=== PATIENT | female | born 1980 | race Caucasian/White ===

== ENCOUNTER 2019-07-17 17:26 | Emergency (ER) | payer SELFPAY ==
[~2019-07-17] VITALS: Ht 157.4 cm; Wt 67.1 kg
[~2019-07-17 17:26] MED LIST: ACHYD1T PO; DCS100C PO; DICY10CA26 PO; FLC100T1 PO; HYDR1CAP2 PO; IBP800T PO; LRT10T PO; METR500T PO; OMEP-10 PO; PHEN15CA67 PO; [UNRECOGNIZED DRUG - OTHER] PO
[2019-07-17 18:40] VITALS: BP_SYST 115; BP_SYST 125; BP_SYST 126; BP_DIAS 77; BP_DIAS 81; BP_DIAS 83
[2019-07-17] MEDS ORDERED: NS IV 1000 ML 1,000 ML IV SCH (18:45)
--- NOTE | 2019-07-17 18:47 | ED General ---
General Chief Complaint: Dizziness/Syncope Stated Complaint: WEAKNESS / DIZZY Nursing Triage Note: Pt ambulatory to ED. Pt reports syncopal episode on . Pt reports feeling nauseated and diaphoretic. Pt reports dizziness and extreme weakness since that episode. Pt denies any additional symptoms. Nursing Sepsis Screen: No Definite Risk Source of Information: Patient Exam Limitations: No Limitations History of Present Illness Date Seen by Provider: Jul 17, 2019 Time Seen by Provider: 18:45 Initial Comments To ER with reports of a syncopal episode on . This began while she was loading her plate with food at a Thanksgiving dinner, she then became xiomara phoretic, felt her vision "going black", then fell landing on her buttocks. She's felt general malaise and fatigue since then, states her head feels heavy no fever no chills no nausea no vomiting no chest pain no palpitations but she does have some shortness of breath stating that it's just difficult for her to exert herself Timing/Duration: 1-2 Days Severity: Moderate Associated Systoms: Denies Symptoms Allergies and Home Medications Allergies Coded Allergies: NKANo Known Allergies (Verified Allergy, Unknown, 05/04/06) Home Medications Dicyclomine Hcl 10 Mg Capsule, 1 EACH PO QID PRN, (Reported) Docusate Sodium 100 Mg Capsule, 100 MG PO BID, (Reported) Fluconazole 100 Mg Tablet, 1 EACH PO DAILY, (Reported) Hydrocodone Bit/Acetaminophen 1 Tab Tablet, 1-2 TAB PO Q3H, (Reported) Ibuprofen 800 Mg Tab, 800 MG PO Q6HR PRN, (Reported) Loratadine 10 Mg Tab, 10 MG PO DAILY, (Reported) Metronidazole 500 Mg Tab, 1 EACH PO BID, (Reported) Omeprazole 20 Mg Capsule.dr, 20 MG PO DAILY, (Reported) Phentermine Hcl 15 Mg Capsule, 15 MG PO DAILY, (Reported) [Spriatec] , 1 PO DAILY, (Reported) Patient Home Medication List Home Medication List Reviewed: Yes Review of Systems Review of Systems Constitutional: see HPI; No chills, No fever EENTM: see HPI Respiratory: see HPI, dyspnea on exertion; No short of breath Cardiovascular: No chest pain, No palpitations; syncope Genitourinary: no symptoms reported Musculoskeletal: no symptoms reported Skin: no symptoms reported Psychiatric/Neurological: See HPI; Denies Headache Hematologic/Lymphatic: No Symptoms Reported Immunological/Allergic: no symptoms reported Past Itysycp-Wfgiug-Moxjra Hx Patient Social History Alcohol Use: Occasionally Uses Recreational Drug Use: No Smoking Status: Current Everyday Smoker Type Used: Cigarettes 2nd Hand Smoke Exposure: Yes Recent Foreign Travel: No Contact w/Someone Who Travel: No Recent Infectious Disease Expo: No Recent Hopitalizations: Yes Physical Abuse: No Sexual Abuse: No Immunizations Up To Date Date of Pneumonia Vaccine: May 18, 2011 Past Medical History Surgeries: Yes (surgery on her thumb, 2 back sx ) Appendectomy, Section, Gallbladder, Hysterectomy, Orthopedic Respiratory: Yes Asthma Cardiac: Yes Hypertension Neurological: Yes Headaches /Migraines Reproductive Disorders: Yes (DUB, FIBROID) Female Reproductive Disorders: Endometriosis 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 oz. kg; 27.00 BMI Method:Stated General Appearance: No Apparent Distress, WD/WN Eyes: Bilateral Eye Normal Inspection, Bilateral Eye PERRL, Bilateral Eye EOMI HEENT: PERRL/EOMI, TMs Normal, Normal ENT Inspection Neck: Full Range of Motion, Normal Inspection Respiratory: Normal Breath Sounds, No Accessory Muscle Use, No Respiratory Distress Cardiovascular: Regular Rate, Rhythm, Normal Peripheral Pulses Gastrointestinal: Normal Bowel Sounds, Non Tender, Soft Extremity: Normal Capillary Refill, Normal Inspection Neurologic/Psychiatric: Alert, Oriented x3 Skin: Normal Color, Warm/Dry Progress/Results/Core Measures Suspected Sepsis Recent Fever Within 48 Hours: No Infection Criteria Present: None New/Unexplained Altered Menta: No Sepsis Screen: No Definite Risk SIRS Temperature: Pulse: 115 Respiratory Rate: 14 Laboratory Tests 07/17/19 18:45: White Blood Count 9.4 Blood Pressure 125 /81 Mean: 96 Laboratory Tests 07/17/19 18:45: Creatinine 0.87, Platelet Count 177, Total Bilirubin 0.2 Results/Orders Lab Results Laboratory Tests Test 07/17/19 18:45 07/17/19 19:28 Range/Units White Blood Count 9.4 4.3-11.0 10^3/uL Red Blood Count 4.49 4.35-5.85 10^6/uL Hemoglobin 13.9 11.5-16.0 G/DL Hematocrit 41 35-52 % Mean Corpuscular Volume 91 80-99 FL Mean Corpuscular Hemoglobin 31 25-34 PG Mean Corpuscular Hemoglobin Concent 34 32-36 G/DL Red Cell Distribution Width 13.5 10.0-14.5 % Platelet Count 177 130-400 10^3/uL Mean Platelet Volume 11.4 H 7.4-10.4 FL Neutrophils (%) (Auto) 57 42-75 % Lymphocytes (%) (Auto) 32 12-44 % Monocytes (%) (Auto) 7 0-12 % Eosinophils (%) (Auto) 4 0-10 % Basophils (%) (Auto) 0 0-10 % Neutrophils # (Auto) 5.3 1.8-7.8 X 10^3 Lymphocytes # (Auto) 3.0 1.0-4.0 X 10^3 Monocytes # (Auto) 0.6 0.0-1.0 X 10^3 Eosinophils # (Auto) 0.4 H 0.0-0.3 10^3/uL Basophils # (Auto) 0.0 0.0-0.1 10^3/uL D-Dimer 0.37 0.00-0.49 UG/ML Sodium Level 138 135-145 MMOL/L Potassium Level 3.9 3.6-5.0 MMOL/L Chloride Level 104 98-107 MMOL/L Carbon Dioxide Level 26 21-32 MMOL/L Anion Gap 8 5-14 MMOL/L Blood Urea Nitrogen 12 7-18 MG/DL Creatinine 0.87 0.60-1.30 MG/DL Estimat Glomerular Filtration Rate > 60 BUN/Creatinine Ratio 14 Glucose Level 95 70-105 MG/DL Calcium Level 9.2 8.5-10.1 MG/DL Corrected Calcium 9.1 8.5-10.1 MG/DL Total Bilirubin 0.2 0.1-1.0 MG/DL Aspartate Amino Transf (AST/SGOT) 24 5-34 U/L Alanine Aminotransferase (ALT/SGPT) 33 0-55 U/L Alkaline Phosphatase 79 40-136 U/L Total Protein 7.4 6.4-8.2 GM/DL Albumin 4.1 3.2-4.5 GM/DL Thyroid Stimulating Hormone (TSH) 1.30 0.35-4.94 UIU/ML Free Thyroxine 1.01 0.70-1.48 NG/DL Serum Test, Qualitative NEGATIVE NEGATIVE Urine Color YELLOW Urine Clarity CLEAR Urine pH 6.0 5-9 Urine Specific Xenia 1.015 L 1.016-1.022 Urine Protein NEGATIVE NEGATIVE Urine Glucose (UA) NEGATIVE NEGATIVE Urine Ketones NEGATIVE NEGATIVE Urine Nitrite NEGATIVE NEGATIVE Urine Bilirubin NEGATIVE NEGATIVE Urine Urobilinogen 0.2 < = 1.0 MG/DL Urine Leukocyte Esterase NEGATIVE NEGATIVE Urine RBC (Auto) NEGATIVE NEGATIVE Urine RBC NONE /HPF Urine WBC NONE /HPF Urine Squamous Epithelial Cells 2-5 /HPF Urine Crystals NONE /LPF Urine Bacteria NEGATIVE /HPF Urine Casts NONE /LPF Urine Mucus NEGATIVE /LPF Urine Culture Indicated NO My Orders Orders - MOISES CARMICHAEL APRN Hcg,Qualitative Serum (07/17/19 18:40) Cbc With Automated Diff (07/17/19 18:40) Comprehensive Metabolic Panel (07/17/19 18:40) Ua Culture If Indicated (07/17/19 18:40) Ed Iv/Invasive Line Start (07/17/19 18:40) Ns Iv 1000 Ml (Sodium Chloride 0.9%) (07/17/19 18:45) Thyroid Stimulating Hormone (07/17/19 18:44) Free T4 (Free Thyroxine) (07/17/19 18:44) Fibrin Degradation Products (07/17/19 18:44) Ct Head Wo (07/17/19 18:44) Ekg Tracing (07/17/19 20:02) BNP (07/17/19 20:03) Vital Signs/I&O 07/17/19 07/17/19 17:55 18:40 Temp 36.6 Pulse 93 97 90 115 Resp 14 B/P (MAP) 116/84 (95) 115/77 (90) 126/83 (97) 125/81 (96) Pulse Ox 100 O2 Delivery Room Air Capillary Refill : Less Than 3 Seconds Blood Pressure Mean: 96 POS Diagnostic Imaging Diagonstic Imaging: Xray Comments NAME: ALAYNA PALENCIA REC#: [id number] PT STATUS: REG ER : 1980 PHYSICIAN: MOISES CARMICHAEL APRN ADMIT DATE: 07/17/19/ER Signed POSDate of Exam:07/17/19 CT HEAD WO PROCEDURE: CT head without contrast. TECHNIQUE: Multiple contiguous axial images were obtained through the brain without the use of intravenous contrast. Auto Exposure Controls were utilized during the CT exam to meet ALARA standards for radiation dose reduction. INDICATION: Syncope. Ventricles are normal in size, shape and position. There are no masses or hemorrhages. There are no extra-axial fluid collections. IMPRESSION: Negative CT head Dictated by: Dictated on workstation # [id number] Dict: 07/17/191940 Trans: 07/17/191955 [facility] [id number] Interpreted by: ANDREA NIEVES MD Electronically signed by: ANDREA NIEVES MD 07/17/191955 Departure Impression Primary Impression: Near syncope Additional Impression: General malaise Disposition: 01 HOME, SELF-CARE Condition: Stable Departure-Patient Inst. Decision time for Depature: 19:57 Referrals: [address] HOLLY A MD ENOCH,PRAVIN GREGORIO MD, MD, RICHARD A DO HAMMAD, ALI MD [facility] Rock FOSTER MD, BASHAR J MD NO,LOCAL PHYSICIAN (PCP) Primary Care Physician LENIN RG CHAD C MD Patient Instructions: Syncope (Fainting) (DC) Add. Discharge Instructions: 1. Return to ER for any concerns. Follow-up with your doctor next week. If You do not have a doctor call one of the physicians listed. All discharge instructions reviewed with patient and/or family. Voiced understanding. MOISES CARMICHAEL APRN Jul 17, 2019 18:47 POS
[2019-07-17 19:00] LABS: BASOPHILS % (AUTO) 0 % (0-10); EOSINOPHILS # (AUTO) 0.4 10^3/uL (0.0-0.3); EOSINOPHILS % (AUTO) 4 % (0-10); HEMATOCRIT 41 % (35-52); HEMOGLOBIN 13.9 G/DL (11.5-16.0); LYMPHOCYTES % (AUTO) 32 % (12-44); MEAN CORPUSCULAR HEMOGLOBIN 31 PG (25-34); MEAN CORPUSCULAR HGB CONC 34 G/DL (32-36); MEAN CORPUSCULAR VOLUME 91 FL (80-99); MEAN PLATELET VOLUME 11.4 FL (7.4-10.4); MONOCYTES # (AUTO) 0.6 X 10^3 (0.0-1.0); MONOCYTES % (AUTO) 7 % (0-12); NEUTROPHILS # (AUTO) 5.3 X 10^3 (1.8-7.8); NEUTROPHILS % (AUTO) 57 % (42-75); PLATELET COUNT 177 10^3/uL (130-400); RED CELL DISTRIBUTION WIDTH 13.5 % (10.0-14.5); WHITE BLOOD COUNT 9.4 10^3/uL (4.3-11.0)
[2019-07-17 19:23] LABS: ALANINE AMINOTRANSFERASE 33 U/L (0-55); ALBUMIN 4.1 GM/DL (3.2-4.5); ALKALINE PHOSPHATASE 79 U/L (40-136); BILIRUBIN,TOTAL 0.2 MG/DL (0.1-1.0); BUN/CREATININE RATIO 14; CALCIUM 9.2 MG/DL (8.5-10.1); CARBON DIOXIDE 26 MMOL/L (21-32); CHLORIDE 104 MMOL/L (98-107); CREATININE SERUM 0.87 MG/DL (0.60-1.30); GFR ESTIMATED > 60; GLUCOSE 95 MG/DL (70-105); POTASSIUM 3.9 MMOL/L (3.6-5.0); SODIUM 138 MMOL/L (135-145); TOTAL PROTEIN 7.4 GM/DL (6.4-8.2)
[2019-07-17 19:40] LABS: BILIRUBIN,URINE NEGATIVE (NEGATIVE); CLARITY,URINE CLEAR; COLOR,URINE YELLOW; GLUCOSE, URINE (UA) NEGATIVE (NEGATIVE); KETONES,URINE NEGATIVE (NEGATIVE); LEUKOCYTE ESTERASE ,URINE NEGATIVE (NEGATIVE); NITRITE,URINE NEGATIVE (NEGATIVE); PROTEIN,URINE NEGATIVE (NEGATIVE)
[2019-07-17 19:43] LABS: FREE T4 (FREE THYROXINE) 1.01 NG/DL (0.70-1.48)
--- NOTE | 2019-07-17 19:44 | Diagnostic Imaging Report ---
PROCEDURE: CT head without contrast. TECHNIQUE: Multiple contiguous axial images were obtained through the brain without the use of intravenous contrast. Auto Exposure Controls were utilized during the CT exam to meet ALARA standards for radiation dose reduction. INDICATION: Syncope. Ventricles are normal in size, shape and position. There are no masses or hemorrhages. There are no extra-axial fluid collections. IMPRESSION: Negative CT head Dictated by: Dictated on workstation # [id number]
[2019-07-17 19:46] LABS: BACTERIA,URINE NEGATIVE /HPF
[2019-07-17 20:09] VITALS: BP 125/81
--- OUTSIDE RECORDS SUMMARY | 2019-08-12 00:58 | XMS REPORT ---
Author Author Sandra OLVERA Organization [facility] Address [address] [place] [address] Care Team Providers Care [employer] [place] Marshal Name Role Phone WEST OLVERA Unavailable PROBLEMS Type Condition ICD9-CM Code QVB04-WH Code Onset Dates Condition S tatus SNOMED Code Problem Fatigue R53.83 Active 37796240 Problem Environmental allergies Z91.09 Active 025805487 Problem Mild intermittent asthma without complication J45. 20 Active 090810508 Problem ADHD (attention deficit hyperactivity disorder), combi aura type F90.2 Active 57587827 Problem Primary hypertension I10 Active 63962180 Problem Obesity (BMI 30.0-34.9) E66.9 Active 303024635255077 Problem Other headache syndrome G44.89 Active 646361022 Problem Fibromyalgia M79.7 Active 6112982 05 Problem Dysthymia F34.1 Active 73713437 Problem Arthralgia, unspecified joint M25.50 Active 25864369 Problem Family history of rheumatoid arthritis Z82.61 Active 388379712 Problem Hypothyroidism, unspecified E03.9 Ac tive 60494680 Problem Gastro-esophageal reflux disease without esophagitis K21.9 Active 527552857 Problem Weight gain R63.5 Active 8382581 Problem Unspecified asthma, uncomplicated J45.909 Active 481743926 Problem Migraine NOS/not intrcbl G43.009 Activ e 04763345 Problem Hormone replacement therapy Z79.890 Ac tive 761606831 ALLERGIES No Information ENCOUNTERS Encounter Location Date Diagnosis [facility] [address] [facility] [id number] [address] [place] [phone] Jul, ADHD (attention deficit hype ractivity disorder), combined type F90.2 [facility] [address] [facility] [id number] [address] [place] [phone] Jul, [facility] [address] [facility] [id number] [address] [place] [phone] Jun, Migraine 346.90 [facility] [address] [facility] [id number] [address] [place] [phone] Jun, Gastro-esophageal reflux dis ease without esophagitis K21.9 [facility] [address] [facility] [id number] [address] [place] [phone] Jun, [facility] [address] [facility] [id number] [address] [place] [phone] Jun, [facility] [address] [facility] [id number] [address] [place] [phone] Jun, [facility] [address] [place] [id number] [place] [phone] Jun, [facility] [address] [place] [id number] [place] [phone] May, Hypothyroidism, unspecified E03.9 ; Primary hypertension I10 and Arthralgia of multiple joints M25.50 [facility] [address] [place] [id number] [place] [phone] May, [facility] [address] [place] [id number] [place] [phone] May, Mild intermittent asthma wit hout complication J45.20 ; Hormone replacement therapy Z79.890 ; Hypothyroidism, unspecified E03.9 ; Fibromyalgia M79.7 ; Gastro-esophageal reflux disease without esophagitis K21.9 ; Primary hypertension I10 ; Arthralgia of multiple joints M25.50 and Encounter for immunization Z23 [facility] [address] [facility] [id number] [address] [place] [phone] May, [facility] [address] [place] [id number] [place] [phone] May, [facility] [address] [place] [id number] [place] [phone] May, Sore throat J02.9 [facility] [address] [phone] 24 Apr, 2018 Encounter for immunization Z 23 [place] [address] [address] 19 Apr, 2018 Dysuria R30.0 and Hypothyroi dism, unspecified E03.9 [place] [address] [address] Jul, [place] [address] [address] Jul, Hypothyroidism, unspecified E03.9 [place] [address] [address] Oct, [place] [address] [address] Oct, [place] [address] [address] Sep, Arthralgia, unspecified join t M25.50 [place] [address] [address] Sep, Arthralgia, unspecified join t M25.50 [place] [address] [address] Sep, Arthralgia, unspecified join t M25.50 [place] [address] [address] Sep, [place] [address] [address] Aug, Obesity (BMI 30.0-34.9) E66. 9 ; Dysthymia F34.1 and Arthralgia, unspecified joint M25.50 [place] [address] [address] Aug, Obesity (BMI 30.0-34.9) E66. 9 [place] [address] [address] Aug, [place] [address] [address] Jul, [facility] [address] [address] Jul, Obesity (BMI 30.0-34.9) E66. 9 [place] [address] [address] Jul, Obesity (BMI 30.0-34.9) E66. 9 and Family history of diabetes mellitus Z83.3 [place] [address] [address] Jul, Obesity (BMI 30.0-34.9) E66. 9 ; Family history of diabetes mellitus Z83.3 and Other headache syndrome G44.89 [place] [address] [address] Jun, Hypothyroidism, unspecified E03.9 [place] [address] [address] Jun, [facility] [address] [address] May, Hypothyroidism, unspecified E03.9 [facility] [address] [address] Apr, Vaginal yeast infection B37. 3 [facility] [address] [address] 02 Apr, 2016 Acute non-recurrent maxillar y sinusitis J01.00 [place] [address] [address] 13 Jan, 2016 Migraine NOS/not intrcbl G43 .009 and Hypothyroidism, unspecified E03.9 [facility] [address] [address] December, Hypothyroidism, unspecified E03.9 [facility] [address] [address] December, Maxillary sinusitis, unspeci fied chronicity J32.0 ; Cough R05 ; Mild intermittent asthma without complication J45.20 and Environmental allergies Z91.09 [place] [address] [address] Nov, Hypothyroidism, unspecified E03.9 [facility] [address] [address] Nov, Fatigue R53.83 ; Migraine NO S/not intrcbl G43.009 ; Gastro- esophageal reflux disease without esophagitis K21.9 ; Hypothyroidism, unspecified E03.9 and Hormone replacement therapy Z79.890 [place] [address] [address] Jun, Headache, unspecified headac he type R51 and Encounter for immunization Z23 [place] [address] [address] May, URI (upper respiratory infec tion) J06.9 and Unspecified asthma, uncomplicated J45.909 [facility] [address] [address] May, [place] [address] [address] May, Migraine NOS/not intrcbl G43 .009 [place] [address] [address] Apr, [place] [address] [address] Mar, Hypothyroid 244.9 and Migrai ne 346.90 [place] [address] [address] Mar, [place] [address] [facility] [id number] [address] [place] [phone] Mar, Fatigue 780.79 [facility] [address] [facility] [id number] [address] [place] [phone] Feb, Hormone replacement therapy V07.4 [facility] [address] [facility] [id number] [address] [place] [phone] Feb, Vertigo 780.4 [facility] [address] [facility] [id number] [address] [place] [phone] Jan, Hormone replacement therapy V07.4 [place] [address] [facility] [id number] [address] [place] [phone] Jan, [place] [address] [place] [id number] [place] [phone] Jan, [place] [address] [place] [id number] [place] [phone] December, Fatigue 780.79 ; Weight gain 783.1 ; Hormone replacement therapy V07.4 and GERD (gastroesophageal reflux disease) 530.81 [place] [address] [place] [id number] [place] [phone] December, Fatigue 780.79 ; Weight gain 783.1 ; Hormone replacement therapy V07.4 and GERD (gastroesophageal reflux disease) 530.81 [place] [address] [place] [phone] December, IMMUNIZATIONS No Known Immunizations SOCIAL HISTORY Never Assessed REASON FOR VISIT Blood pressure check-cyrusMerary PLAN OF CARE VITAL SIGNS Height 62 in 2018-07-28 Weight 156.4 lbs 2018-07-28 BMI 28.60 kg/m2 2018-07-28 Blood pressure systolic 102 mmHg 2018-07-28 Blood pressure diastolic 72 mmHg 2018-07-28 MEDICATIONS No Known Medications RESULTS No Results PROCEDURES No Known procedures INSTRUCTIONS MEDICATIONS ADMINISTERED No Known Medications MEDICAL (GENERAL) HISTORY Type Description Date Medical History seasonal allergies Medical History asthma Medical History gastroesophageal reflux disease (GERD) Medical History migraine headaches Medical History Hypertension Medical History fibromyalgia Surgical History section x2 Surgical History gallbladder 2011 Surgical History appendectomy 2011 Surgical History Hysterectomy Had only one ov tomas and small fallopian tube. Had total hyst. Dr Hilton 2012 Hospitalization History Hospitalization History Hysterectomy/appendectomy Hospitalization History Dehydration
--- OUTSIDE RECORDS SUMMARY | 2019-08-12 00:58 | XMS REPORT ---
Author Author Sandra OLVERA Organization [facility] Address [address] [place] [address] Care Team Providers Care Compressor Repairer Name Role Phone WEST OLVERA Unavailable PROBLEMS Type Condition ICD9-CM Code FEQ44-RF Code Onset Dates Condition S tatus SNOMED Code Problem Hormone replacement therapy Z79.890 Ac tive 579139919 Problem Mild intermittent asthma without complication J45. 20 Active 527102843 Problem Fatigue R53.83 Active 56380112 Problem Fibromyalgia M79.7 Active 8262358 05 Problem Primary hypertension I10 Active 83528466 Problem Obesity (BMI 30.0-34.9) E66.9 Active 218812061226550 Problem Environmental allergies Z91.09 Active 524638660 Problem Dysthymia F34.1 Active 53722388 Problem Other headache syndrome G44.89 Active 497959285 Problem Weight gain R63.5 Active 2007696 Problem Hypothyroidism, unspecified E03.9 Ac tive 87305600 Problem Migraine NOS/not intrcbl G43.009 Activ e 03542526 Problem Arthralgia, unspecified joint M25.50 Active 08776441 Problem Gastro-esophageal reflux disease without esophagitis K21.9 Active 291719369 Problem Family history of rheumatoid arthritis Z82.61 Active 112313767 Problem Unspecified asthma, uncomplicated J45.909 Active 258909821 ALLERGIES No Information ENCOUNTERS Encounter Location Date Diagnosis [facility] [address] [facility] [id number] [address] [place] [address] Jun, Migraine 346.90 [facility] [address] [facility] [id number] [address] [place] [address] 23 Jun, 2018 Gastro-esophageal reflux dis ease without esophagitis K21.9 [facility] [address] [facility] [id number] [address] [place] [phone] Jun, [facility] [address] [place] [id number] [address] [place] [phone] Jun, [facility] [address] [address] Jun, [facility] [address] [place] [id number] [place] [address] Jun, [facility] [address] [address] May, Hypothyroidism, unspecified E03.9 ; Primary hypertension I10 and Arthralgia of multiple joints M25.50 [place] [address] [address] May, [place] [address] [address] May, Mild intermittent asthma wit hout complication J45.20 ; Hormone replacement therapy Z79.890 ; Hypothyroidism, unspecified E03.9 ; Fibromyalgia M79.7 ; Gastro-esophageal reflux disease without esophagitis K21.9 ; Primary hypertension I10 ; Arthralgia of multiple joints M25.50 and Encounter for immunization Z23 [place] [address] [address] May, [place] [address] [address] May, [place] [address] [address] May, Sore throat J02.9 [place] [address] [place] [id number] [address] [place] [address] Apr, Encounter for immunization Z 23 [place] [address] [address] Apr, Dysuria R30.0 and Hypothyroi dism, unspecified E03.9 [place] [address] [address] Jul, [facility] [address] [place] [id number] [address] [place] [address] Jul, Hypothyroidism, unspecified E03.9 [facility] [address] [facility] [id number] [place] [phone] Oct, [facility] [address] [address] Oct, [facility] [address] [address] Sep, Arthralgia, unspecified join t M25.50 [place] [address] [address] Sep, Arthralgia, unspecified join t M25.50 [place] [address] [address] Sep, Arthralgia, unspecified join t M25.50 [facility] [address] [address] Sep, [facility] [address] [address] Aug, Obesity (BMI 30.0-34.9) E66. 9 ; Dysthymia F34.1 and Arthralgia, unspecified joint M25.50 [facility] [address] [address] Aug, Obesity (BMI 30.0-34.9) E66. 9 [facility] [address] [address] Aug, [place] [address] [address] Jul, [facility] [address] [address] Jul, Obesity (BMI 30.0-34.9) E66. 9 [place] [address] [address] Jul, Obesity (BMI 30.0-34.9) E66. 9 and Family history of diabetes mellitus Z83.3 [place] [address] [address] Jul, Obesity (BMI 30.0-34.9) E66. 9 ; Family history of diabetes mellitus Z83.3 and Other headache syndrome G44.89 [place] [address] [address] Jun, Hypothyroidism, unspecified E03.9 [place] [address] [address] Jun, [place] [address] [address] May, Hypothyroidism, unspecified E03.9 [place] [address] [address] Apr, Vaginal yeast infection B37. 3 [facility] [address] [address] 02 Apr, 2016 Acute non-recurrent maxillar y sinusitis J01.[address] [address] Jan, Migraine NOS/not intrcbl G43 .009 and Hypothyroidism, unspecified E03.9 [place] [address] [address] December, Hypothyroidism, unspecified E03.9 [facility] [place] [address] [address] December, Maxillary sinusitis, unspeci fied chronicity J32.0 ; Cough R05 ; Mild intermittent asthma without complication J45.20 and Environmental allergies Z91.09 [place] [address] [address] Nov, Hypothyroidism, unspecified E03.9 [place] [address] [address] Nov, Fatigue R53.83 ; Migraine NO S/not intrcbl G43.009 ; Gastro- esophageal reflux disease without esophagitis K21.9 ; Hypothyroidism, unspecified E03.9 and Hormone replacement therapy Z79.890 [place] [address] [address] Jun, Headache, unspecified headac he type R51 and Encounter for immunization Z23 [place] [address] [address] May, URI (upper respiratory infec tion) J06.9 and Unspecified asthma, uncomplicated J45.909 [place] [address] [address] May, [place] [address] [address] May, Migraine NOS/not intrcbl G43 .009 [place] [address] [address] Apr, [place] [address] [address] Mar, Hypothyroid 244.9 and Migrai ne 346.90 [place] [address] [address] Mar, [place] [address] [address] Mar, Fatigue 780.79 [place] [address] [address] Feb, Hormone replacement therapy V07.4 [place] [address] [address] Feb, Vertigo 780.4 [facility] [address] [facility] [id number] [address] [place] [address] Jan, Hormone replacement therapy V07.4 [place] [address] [facility] [id number] [address] [place] [address] Jan, [place] [address] [facility] [id number] [address] [place] [address] Jan, [place] [address] [facility] [id number] [address] [place] [address] December, Fatigue 780.79 ; Weight gain 783.1 ; Hormone replacement therapy V07.4 and GERD (gastroesophageal reflux disease) 530.81 [place] [address] [facility] [id number] [address] [place] [address] December, Fatigue 780.79 ; Weight gain 783.1 ; Hormone replacement therapy V07.4 and GERD (gastroesophageal reflux disease) 530.81 [place] [address] [facility] [id number] [address] [place] [address] December, IMMUNIZATIONS No Known Immunizations SOCIAL HISTORY Never Assessed REASON FOR VISIT New Refill Request PLAN OF CARE VITAL SIGNS MEDICATIONS Medication Instructions Dosage Frequency Start Date End Date Duration S tatus Imitrex 100 MG Orally Once a day prn May repeat in 2 h ours 0.5 - 1 tablet as needed one time Mar, 10 days Active RESULTS No Results PROCEDURES No Known procedures INSTRUCTIONS MEDICATIONS ADMINISTERED No Known Medications MEDICAL (GENERAL) HISTORY Type Description Date Medical History seasonal allergies Medical History asthma Medical History gastroesophageal reflux disease (GERD) Medical History migraine headaches Medical History Hypertension Surgical History section x2 Surgical History gallbladder 2010 Surgical History appendectomy 2011 Surgical History Hysterectomy Had only one ov tomas and small fallopian tube. Had total hyst. Dr Hilton 2011 Hospitalization History Hospitalization History Hysterectomy/appendectomy Hospitalization History Dehydration
--- OUTSIDE RECORDS SUMMARY | 2019-08-12 00:58 | XMS REPORT ---
Author Author Sandra OLVERA Organization [facility] Address [address] [place] [address] Care Team Providers Care Space Physicist Name Role Phone WEST OLVERA Unavailable PROBLEMS Type Condition ICD9-CM Code [id number] Code Onset Dates Condition S tatus SNOMED Code Problem Fatigue R53.83 Active 30603459 Problem Environmental allergies Z91.09 Active 005743664 Problem Mild intermittent asthma without complication J45. 20 Active 588493880 Problem ADHD (attention deficit hyperactivity disorder), combi aura type F90.2 Active 34924299 Problem Primary hypertension I10 Active 39837147 Problem Obesity (BMI 30.0-34.9) E66.9 Active 395375345460532 Problem Other headache syndrome G44.89 Active 680065197 Problem Fibromyalgia M79.7 Active 3689088 05 Problem Dysthymia F34.1 Active 73340174 Problem Arthralgia, unspecified joint M25.50 Active 55754360 Problem Family history of rheumatoid arthritis Z82.61 Active 870859858 Problem Hypothyroidism, unspecified E03.9 Ac tive 93948600 Problem Gastro-esophageal reflux disease without esophagitis K21.9 Active 094526218 Problem Weight gain R63.5 Active 4140852 Problem Unspecified asthma, uncomplicated J45.909 Active 630555494 Problem Migraine NOS/not intrcbl G43.009 Activ e 50611167 Problem Hormone replacement therapy Z79.890 Ac tive 363756141 ALLERGIES No Known Allergies ENCOUNTERS Encounter Location Date Diagnosis [facility] [address] [facility] [id number] [address] [place] [address] Jul, ADHD (attention deficit hype ractivity disorder), combined type F90.2 [facility] [address] [facility] [id number] [address] [place] [address] Jul, [facility] [address] [facility] [id number] [address] [place] [address] Jun, Migraine 346.90 [facility] [address] [facility] [id number] [address] [place] [address] Jun, Gastro-esophageal reflux dis ease without esophagitis K21.9 [facility] [address] [facility] [id number] [address] [place] [address] Jun, [facility] [address] [facility] [id number] [address] [place] [address] Jun, [facility] [address] [facility] [id number] [address] [place] [address] Jun, [facility] [address] [place] [id number] [place] [address] Jun, [facility] [address] [place] [id number] [address] [place] [address] May, Hypothyroidism, unspecified E03.9 ; Primary hypertension I10 and Arthralgia of multiple joints M25.50 [facility] [address] [place] [id number] [address] [place] [address] May, [facility] [address] [place] [id number] [address] [place] [address] May, Mild intermittent asthma wit hout complication J45.20 ; Hormone replacement therapy Z79.890 ; Hypothyroidism, unspecified E03.9 ; Fibromyalgia M79.7 ; Gastro-esophageal reflux disease without esophagitis K21.9 ; Primary hypertension I10 ; Arthralgia of multiple joints M25.50 and Encounter for immunization Z23 [facility] [address] [facility] [id number] [address] [place] [address] May, [facility] [address] [place] [id number] [address] [place] [address] May, [facility] [address] [place] [id number] [address] [place] [address] May, Sore throat J02.9 [facility] [address] [address] 24 Apr, 2018 Encounter for immunization Z 23 [place] [address] [address] 19 Apr, 2018 Dysuria R30.0 and Hypothyroi dism, unspecified E03.9 [place] [address] [address] Jul, [place] [address] [address] Jul, Hypothyroidism, unspecified E03.9 [place] [address] [address] Oct, [place] [address] [address] Oct, [place] [address] [address] Sep, Arthralgia, unspecified join t M25.50 [place] [address] [address] Sep, Arthralgia, unspecified join t M25.50 [place] [address] [address] Sep, Arthralgia, unspecified join t M25.50 [place] [address] [address] Sep, [place] [address] [address] Aug, Obesity (BMI 30.0-34.9) E66. 9 ; Dysthymia F34.1 and Arthralgia, unspecified joint M25.50 [place] [address] [address] Aug, Obesity (BMI 30.0-34.9) E66. 9 [place] [address] [address] Aug, [place] [address] [address] Jul, [facility] [address] [address] Jul, Obesity (BMI 30.0-34.9) E66. 9 [place] [address] [address] Jul, Obesity (BMI 30.0-34.9) E66. 9 and Family history of diabetes mellitus Z83.3 [place] [address] [address] Jul, Obesity (BMI 30.0-34.9) E66. 9 ; Family history of diabetes mellitus Z83.3 and Other headache syndrome G44.89 [place] [address] [address] Jun, Hypothyroidism, unspecified E03.9 [place] [address] [address] Jun, [facility] [address] [address] May, Hypothyroidism, unspecified E03.9 [facility] [address] [address] Apr, Vaginal yeast infection B37. 3 [facility] [address] [address] 02 Apr, 2016 Acute non-recurrent maxillar y sinusitis J01.00 [place] [address] [address] 13 Jan, 2016 Migraine NOS/not intrcbl G43 .009 and Hypothyroidism, unspecified E03.9 [facility] [address] [address] December, Hypothyroidism, unspecified E03.9 [facility] [address] [address] December, Maxillary sinusitis, unspeci fied chronicity J32.0 ; Cough R05 ; Mild intermittent asthma without complication J45.20 and Environmental allergies Z91.09 [place] [address] [address] Nov, Hypothyroidism, unspecified E03.9 [facility] [address] [address] Nov, Fatigue R53.83 ; Migraine NO S/not intrcbl G43.009 ; Gastro- esophageal reflux disease without esophagitis K21.9 ; Hypothyroidism, unspecified E03.9 and Hormone replacement therapy Z79.890 [place] [address] [address] Jun, Headache, unspecified headac he type R51 and Encounter for immunization Z23 [place] [address] [address] May, URI (upper respiratory infec tion) J06.9 and Unspecified asthma, uncomplicated J45.909 [place] [address] [address] May, [place] [address] [address] May, Migraine NOS/not intrcbl G43 .009 [place] [address] [address] Apr, [place] [address] [address] Mar, Hypothyroid 244.9 and Migrai ne 346.90 [place] [address] [address] Mar, [place] [address] [id number] [address] [place] [address] Mar, Fatigue 780.79 [facility] [address] [facility] [id number] [address] [place] [address] Feb, Hormone replacement therapy V07.4 [facility] [address] [facility] [id number] [address] [place] [address] Feb, Vertigo 780.4 [facility] [address] [id number] [address] [place] [address] Jan, Hormone replacement therapy V07.4 [place] [address] [id number] [address] [place] [address] Jan, [place] [address] [facility] [id number] [address] [place] [address] Jan, [place] [address] [facility] [id number] [address] [place] [address] December, Fatigue 780.79 ; Weight gain 783.1 ; Hormone replacement therapy V07.4 and GERD (gastroesophageal reflux disease) 530.81 [place] [address] [facility] [id number] [address] [place] [address] December, Fatigue 780.79 ; Weight gain 783.1 ; Hormone replacement therapy V07.4 and GERD (gastroesophageal reflux disease) 530.81 [place] [address] [facility] [id number] [address] [place] [address] December, IMMUNIZATIONS No Known Immunizations SOCIAL HISTORY Never Assessed REASON FOR VISIT med change, pt would like to switch weight loss meds. Wan A PLAN OF CARE Activity Details Follow Up 3 Months Reason: VITAL SIGNS Height 62 in 2018-07-28 Weight 156.4 lbs 2018-07-28 Temperature 98 degrees Fahrenheit 2018-07-28 Heart Rate 83 bpm 2018-07-28 Respiratory Rate 18 2018-07-28 Oximetry 99 % 2018-07-28 BMI 28.60 kg/m2 2018-07-28 Blood pressure systolic 102 mmHg 2018-07-28 Blood pressure diastolic 72 mmHg 2018-07-28 MEDICATIONS Medication Instructions Dosage Frequency Start Date End Date Duration S tatus Lisinopril-Hydrochlorothiazide 10-12.5 MG Orally Once a day 1 tablet 24h 30 day(s) Active Zyrtec Allergy 10 MG Orally Once a day 1 capsule 24h 30 day(s) Active Levothyroxine Sodium 50 mcg Orally Once a day 1 tablet 24h 27 A 2015 30 day(s) Active Estradiol 2 MG Orally Once a day 1 tablet 24h May, 3 0 day(s) Active ProAir HFA 108 (90 base) mcg/act Inhalation every 4 hrs 2 puffs as needed 4h 02 Apr, 2016 30 days Active Cymbalta 30 MG Orally Once a day 1 capsule 24h 30 da y(s) Active Amphetamine-Dextroamphet ER 15 mg Orally Once a day 1 capsule in the morning 24h Jul, 28 days Active Omeprazole 40 mg Orally twice a day TAKE ONE CAPSULE BY MOUTH DAILY 12h 30 Active Imitrex 100 MG Orally Once a day [...]
--- OUTSIDE RECORDS SUMMARY | 2019-08-12 00:58 | XMS REPORT ---
Author Author Sandra OLVERA Organization [facility] Address [address] [place] [address] Care Team Providers Care Relay Mechanic Name Role Phone WEST OLVERA Unavailable PROBLEMS Type Condition ICD9-CM Code [id number] Code Onset Dates Condition S tatus SNOMED Code Problem Fatigue R53.83 Active 07860917 Problem Environmental allergies Z91.09 Active 008963713 Problem Mild intermittent asthma without complication J45. 20 Active 275283065 Problem ADHD (attention deficit hyperactivity disorder), combi aura type F90.2 Active 16768707 Problem Primary hypertension I10 Active 71912334 Problem Obesity (BMI 30.0-34.9) E66.9 Active 917125046461515 Problem Other headache syndrome G44.89 Active 926639629 Problem Fibromyalgia M79.7 Active 5978848 05 Problem Dysthymia F34.1 Active 77049375 Problem Arthralgia, unspecified joint M25.50 Active 84487677 Problem Family history of rheumatoid arthritis Z82.61 Active 632982863 Problem Hypothyroidism, unspecified E03.9 Ac tive 96060948 Problem Gastro-esophageal reflux disease without esophagitis K21.9 Active 235334319 Problem Weight gain R63.5 Active 9963808 Problem Unspecified asthma, uncomplicated J45.909 Active 970938668 Problem Migraine NOS/not intrcbl G43.009 Activ e 83960699 Problem Hormone replacement therapy Z79.890 Ac tive [id number] ALLERGIES No Information ENCOUNTERS Encounter Location Date Diagnosis [facility] [address] [facility] [id number] [address] [place] [id number] 19 Jul, 2018 ADHD (attention deficit hype ractivity disorder), combined type F90.2 [facility] [address] [facility] [id number] [address] [place] [address] Jul, Vaginal yeast infection B37. 3 [facility] [address] [place] [id number] [address] [place] [address] Jul, ADHD (attention deficit hype ractivity disorder), combined type F90.2 [facility] [address] [place] [id number] [address] [place] [address] Jul, [facility] [address] [place] [id number] [address] [place] [address] Jun, Migraine 346.90 [facility] [address] [place] [id number] [address] [place] [address] Jun, Gastro-esophageal reflux dis ease without esophagitis K21.9 [place] [address] [place] [id number] [place] [address] Jun, [place] [address] [place] [id number] [address] [place] [address] Jun, [place] [address] [place] [id number] [address] [place] [address] Jun, [place] [address] [place] [id number] [address] [place] [address] Jun, [place] [address] [place] [id number] [place] [address] May, Hypothyroidism, unspecified E03.9 ; Primary hypertension I10 and Arthralgia of multiple joints M25.50 [place] [address] [place] [id number] [address] [place] [address] May, [place] [address] [place] [id number] [address] [place] [address] May, Mild intermittent asthma wit hout complication J45.20 ; Hormone replacement therapy Z79.890 ; Hypothyroidism, unspecified E03.9 ; Fibromyalgia M79.7 ; Gastro-esophageal reflux disease without esophagitis K21.9 ; Primary hypertension I10 ; Arthralgia of multiple joints M25.50 and Encounter for immunization Z23 [place] [address] [place] [id number] [address] [place] [address] May, [facility] [address] [place] [id number] [address] [place] [address] May, [facility] [address] [address] May, Sore throat J02.9 [facility] [address] [address] Apr, Encounter for immunization Z 23 [facility] [address] [address] Apr, Dysuria R30.0 and Hypothyroi dism, unspecified E03.9 [place] [address] [address] Jul, [place] [address] [address] Jul, Hypothyroidism, unspecified E03.9 [facility] [address] [address] Oct, [facility] [address] [address] Oct, [facility] [address] [address] Sep, Arthralgia, unspecified join t M25.50 [facility] [address] [address] Sep, Arthralgia, unspecified join t M25.50 [facility] [address] [place] [id number] [address] [place] [address] Sep, Arthralgia, unspecified join t M25.50 [facility] [address] [place] [id number] [address] [place] [address] Sep, [facility] [address] [address] Aug, Obesity (BMI 30.0-34.9) E66. 9 ; Dysthymia F34.1 and Arthralgia, unspecified joint M25.50 [place] [address] [address] Aug, Obesity (BMI 30.0-34.9) E66. 9 [place] [address] [address] Aug, [facility] [address] [address] Jul, [place] [address] [address] Jul, Obesity (BMI 30.0-34.9) E66. 9 [place] [address] [address] Jul, Obesity (BMI 30.0-34.9) E66. 9 and Family history of diabetes mellitus Z83.3 [place] [address] [address] Jul, Obesity (BMI 30.0-34.9) E66. 9 ; Family history of diabetes mellitus Z83.3 and Other headache syndrome G44.89 [place] [address] [address] Jun, Hypothyroidism, unspecified E03.9 [place] [address] [address] Jun, [place] [address] [address] May, Hypothyroidism, unspecified E03.9 [place] [address] [address] Apr, Vaginal yeast infection B37. 3 [facility] [address] [address] Apr, Acute non-recurrent maxillar y sinusitis J01.00 [facility] [address] [address] Jan, Migraine NOS/not intrcbl G43 .009 and Hypothyroidism, unspecified E03.9 [facility] [address] [address] December, Hypothyroidism, unspecified E03.9 [facility] [address] [address] December, Maxillary sinusitis, unspeci fied chronicity J32.0 ; Cough R05 ; Mild intermittent asthma without complication J45.20 and Environmental allergies Z91.09 [place] [address] [address] Nov, Hypothyroidism, unspecified E03.9 [place] [address] [address] Nov, Fatigue R53.83 ; Migraine NO S/not intrcbl G43.009 ; Gastro- esophageal reflux disease without esophagitis K21.9 ; Hypothyroidism, unspecified E03.9 and Hormone replacement therapy Z79.890 [place] [address] [address] Jun, Headache, unspecified headac he type R51 and Encounter for immunization Z23 [place] [address] [address] May, URI (upper respiratory infec tion) J06.9 and Unspecified asthma, uncomplicated J45.909 [place] [address] [address] May, [place] [address] [address] May, Migraine NOS/not intrcbl G43 .009 [place] [address] [address] Apr, [place] [address] [facility] [id number] [address] [place] [address] Mar, Hypothyroid 244.9 and Migrai ne 346.90 [place] [address] [facility] [id number] [address] [place] [address] Mar, [place] [address] [facility] [id number] [address] [place] [address] Mar, Fatigue 780.79 [place] [address] [facility] [id number] [address] [place] [address] Feb, Hormone replacement therapy V07.4 [place] [address] [facility] [id number] [address] [place] [address] Feb, Vertigo 780.4 [place] [address] [facility] [id number] [address] [place] [address] Jan, Hormone replacement therapy V07.4 [place] [address] [facility] [id number] [address] [place] [address] Jan, [place] [address] [facility] [id number] [address] [place] [address] Jan, [place] [address] [facility] [id number] [address] [place] [address] December, Fatigue 780.79 ; Weight gain 783.1 ; Hormone replacement therapy V07.4 and GERD (gastroesophageal reflux disease) 530.81 [place] [address] [facility] [id number] [address] [place] [address] December, Fatigue 780.79 ; Weight gain 783.1 ; Hormone replacement therapy V07.4 and GERD (gastroesophageal reflux disease) 530.81 [place] [address] [facility] [id number] [address] [place] [address] December, IMMUNIZATIONS No Known Immunizations SOCIAL HISTORY Never Assessed REASON FOR VISIT PLAN OF CARE VITAL SIGNS MEDICATIONS Medication Instructions Dosage Frequency Start Date End Date Duration S ritaus Adderall XR 30 MG Orally Once a day 1 capsule in the morning 24h Jul, 28 days Active Adderall 20 mg Orally in evening if needed 1 tablet Jul, 28 days Active RESULTS No Results PROCEDURES No [...]
--- OUTSIDE RECORDS SUMMARY | 2019-08-12 00:58 | XMS REPORT ---
Author Author Sandra OLVERA Organization [facility] [place] Address [address] [place] [address] Care Team Providers Care Passenger Tire Builder Name Role Phone WEST OLVERA Unavailable PROBLEMS Type Condition ICD9-CM Code AXC14-LA Code Onset Dates Condition S tatus SNOMED Code Problem Fatigue R53.83 Active 88571055 Problem Environmental allergies Z91.09 Active 465254453 Problem Mild intermittent asthma without complication J45. 20 Active 351799250 Problem ADHD (attention deficit hyperactivity disorder), combi aura type F90.2 Active 25174707 Problem Primary hypertension I10 Active 44072184 Problem Obesity (BMI 30.0-34.9) E66.9 Active 645757816168332 Problem Other headache syndrome G44.89 Active 687624861 Problem Fibromyalgia M79.7 Active 0230435 05 Problem Dysthymia F34.1 Active 09180569 Problem Arthralgia, unspecified joint M25.50 Active 16374888 Problem Family history of rheumatoid arthritis Z82.61 Active 393018834 Problem Hypothyroidism, unspecified E03.9 Ac tive 58868069 Problem Gastro-esophageal reflux disease without esophagitis K21.9 Active 692589918 Problem Weight gain R63.5 Active 5098137 Problem Unspecified asthma, uncomplicated J45.909 Active 887843872 Problem Migraine NOS/not intrcbl G43.009 Activ e 28474921 Problem Hormone replacement therapy Z79.890 Ac tive 775146070 ALLERGIES No Information ENCOUNTERS Encounter Location Date Diagnosis [facility] [place] [address] [facility] [id number] [address] [place] [address] 14 Jul, 2018 Vaginal yeast infection B37. 3 [facility] [place] [address] [facility] [id number] [address] [place] [address] 11 Jul, 2018 ADHD (attention deficit hype ractivity disorder), combined type F90.2 [facility] [place] [address] [place] [id number] [address] [place] [address] Jul, [facility] [place] [address] [address] Jun, Migraine 346.90 [facility] [place] [address] [place] [id number] [address] [place] [address] Jun, Gastro-esophageal reflux dis ease without esophagitis K21.9 [facility] [place] [address] [place] [id number] [place] [address] Jun, [facility] [place] [address] [place] [id number] [place] [address] Jun, [facility] [place] [address] [place] [id number] [place] [address] Jun, [facility] [place] [address] [address] Jun, [facility] [place] [address] [address] May, Hypothyroidism, unspecified E03.9 ; Primary hypertension I10 and Arthralgia of multiple joints M25.50 [facility] [place] [address] [place] [id number] [address] [place] [address] May, [facility] [place] [address] [address] May, Mild intermittent asthma wit hout complication J45.20 ; Hormone replacement therapy Z79.890 ; Hypothyroidism, unspecified E03.9 ; Fibromyalgia M79.7 ; Gastro-esophageal reflux disease without esophagitis K21.9 ; Primary hypertension I10 ; Arthralgia of multiple joints M25.50 and Encounter for immunization Z23 [facility] [place] [address] [place] [id number] [address] [place] [address] May, [facility] [place] [address] [place] [id number] [address] [place] [address] May, [facility] [place] [address] [address] May, Sore throat J02.9 [place] [address] [address] 24 Apr, 2018 Encounter for immunization Z 23 [place] [address] [address] 19 Apr, 2018 Dysuria R30.0 and Hypothyroi dism, unspecified E03.9 [place] [address] [address] Jul, [place] [address] [address] Jul, Hypothyroidism, unspecified E03.9 [place] [address] [address] Oct, [place] [address] [address] Oct, [place] [address] [address] Sep, Arthralgia, unspecified join t M25.50 [place] [address] [address] Sep, Arthralgia, unspecified join t M25.50 [place] [address] [address] Sep, Arthralgia, unspecified join t M25.50 [place] [address] [address] Sep, [place] [address] [address] Aug, Obesity (BMI 30.0-34.9) E66. 9 ; Dysthymia F34.1 and Arthralgia, unspecified joint M25.50 [place] [address] [address] 11 Aug, 2016 Obesity (BMI 30.0-34.9) E66. 9 [facility] [place] [address] [address] Aug, [facility] [place] [address] [place] [id number] [place] [address] Jul, [facility] [place] [address] [address] Jul, Obesity (BMI 30.0-34.9) E66. 9 [facility] [place] [address] [address] Jul, Obesity (BMI 30.0-34.9) E66. 9 and Family history of diabetes mellitus Z83.3 [facility] [place] [address] [address] Jul, Obesity (BMI 30.0-34.9) E66. 9 ; Family history of diabetes mellitus Z83.3 and Other headache syndrome G44.89 [place] [address] [address] Jun, Hypothyroidism, unspecified E03.9 [facility] [place] [address] [address] 16 Jun, 2016 [facility] [place] [address] [address] May, Hypothyroidism, unspecified E03.9 [facility] [place] [address] [place] [id number] [address] [place] [address] 12 Apr, 2016 Vaginal yeast infection B37. 3 [facility] [address] [place] [id number] [address] [place] [address] 02 Apr, 2016 Acute non-recurrent maxillar y sinusitis J01.00 [facility] [place] [address] [address] 13 Jan, 2016 Migraine NOS/not intrcbl G43 .009 and Hypothyroidism, unspecified E03.9 [facility] [place] [address] [address] December, Hypothyroidism, unspecified E03.9 [facility] [address] [address] December, Maxillary sinusitis, unspeci fied chronicity J32.0 ; Cough R05 ; Mild intermittent asthma without complication J45.20 and Environmental allergies Z91.09 [facility] [place] [address] [address] Nov, Hypothyroidism, unspecified E03.9 [place] [address] [address] Nov, Fatigue R53.83 ; Migraine NO S/not intrcbl G43.009 ; Gastro- esophageal reflux disease without esophagitis K21.9 ; Hypothyroidism, unspecified E03.9 and Hormone replacement therapy Z79.890 [place] [address] [address] Jun, Headache, unspecified headac he type R51 and Encounter for immunization Z23 [place] [address] [address] May, URI (upper respiratory infec tion) J06.9 and Unspecified asthma, uncomplicated J45.909 [place] [address] [address] May, [place] [address] [address] May, Migraine NOS/not intrcbl G43 .009 [place] [address] [address] Apr, [place] [address] [address] Mar, Hypothyroid 244.9 and Migrai ne 346.90 [place] [address] [facility] [id number] [address] [place] [address] Mar, [place] [address] [facility] [id number] [place] [address] Mar, Fatigue 780.79 [place] [address] [facility] [id number] [address] [place] [address] Feb, Hormone replacement therapy V07.4 [place] [address] [facility] [id number] [address] [place] [address] Feb, Vertigo 780.4 [place] [address] [facility] [id number] [address] [place] [address] Jan, Hormone replacement therapy V07.4 [place] [address] [place] [id number] [place] [address] Jan, [place] [address] [place] [id number] [address] [place] [address] Jan, [place] [address] [place] [address] December, Fatigue 780.79 ; Weight gain 783.1 ; Hormone replacement therapy V07.4 and GERD (gastroesophageal reflux disease) 530.81 [place] [address] [place] [id number] [address] [place] [address] December, Fatigue 780.79 ; Weight gain 783.1 ; Hormone replacement therapy V07.4 and GERD (gastroesophageal reflux disease) 530.81 [place] [address] [place] [id number] [place] [phone] December, IMMUNIZATIONS No Known Immunizations SOCIAL HISTORY Never Assessed REASON FOR VISIT med request PLAN OF CARE VITAL SIGNS MEDICATIONS Medication Instructions Dosage Frequency Start Date End Date Duration S tatus Diflucan 150 MG Orally Once a day 1 tablet 24h Jul, 3 days Active RESULTS No Results PROCEDURES No [...]
--- OUTSIDE RECORDS SUMMARY | 2019-08-12 00:59 | XMS REPORT ---
Author Author Sandra OLVERA Organization [facility] Address [address] [place] [address] Care Team Providers Care Clinical Research Specialist Name Role Phone WEST OLVERA Unavailable PROBLEMS Type Condition ICD9-CM Code ILT42-BK Code Onset Dates Condition S tatus SNOMED Code Problem Hormone replacement therapy Z79.890 Ac tive 382598924 Problem Mild intermittent asthma without complication J45. 20 Active 828105465 Problem Fatigue R53.83 Active 20556185 Problem Fibromyalgia M79.7 Active 4918892 05 Problem Primary hypertension I10 Active 56737292 Problem Obesity (BMI 30.0-34.9) E66.9 Active 780160750315638 Problem Environmental allergies Z91.09 Active 467719460 Problem Dysthymia F34.1 Active 89810805 Problem Other headache syndrome G44.89 Active 168830204 Problem Weight gain R63.5 Active 9803643 Problem Hypothyroidism, unspecified E03.9 Ac tive 37533198 Problem Migraine NOS/not intrcbl G43.009 Activ e 34969561 Problem Arthralgia, unspecified joint M25.50 Active 64479902 Problem Gastro-esophageal reflux disease without esophagitis K21.9 Active 018822774 Problem Family history of rheumatoid arthritis Z82.61 Active 379050323 Problem Unspecified asthma, uncomplicated J45.909 Active 894817087 ALLERGIES No Information ENCOUNTERS Encounter Location Date Diagnosis [facility] [address] [facility] [id number] [address] [place] [address] Jun, [facility] [address] [facility] [id number] [address] [place] [address] Jun, [facility] [address] [facility] [id number] [address] [place] [address] Jun, [facility] [address] [facility] [id number] [address] [place] [address] May, Hypothyroidism, unspecified E03.9 ; Primary hypertension I10 and Arthralgia of multiple joints M25.50 [facility] [address] [place] [id number] [address] [place] [address] May, [place] [address] [place] [id number] [address] [place] [address] May, Mild intermittent asthma wit hout complication J45.20 ; Hormone replacement therapy Z79.890 ; Hypothyroidism, unspecified E03.9 ; Fibromyalgia M79.7 ; Gastro-esophageal reflux disease without esophagitis K21.9 ; Primary hypertension I10 ; Arthralgia of multiple joints M25.50 and Encounter for immunization Z23 [place] [address] [place] [id number] [address] [place] [address] May, [place] [address] [address] May, [place] [address] [address] May, Sore throat J02.9 [place] [address] [place] [id number] [place] [address] Apr, Encounter for immunization Z 23 [place] [address] [place] [id number] [address] [place] [address] Apr, Dysuria R30.0 and Hypothyroi dism, unspecified E03.9 [place] [address] [place] [id number] [address] [place] [address] Jul, [place] [address] [place] [id number] [address] [place] [address] Jul, Hypothyroidism, unspecified E03.9 [place] [address] [place] [id number] [address] [place] [address] Oct, [place] [address] [place] [id number] [address] [place] [address] Oct, [place] [id number] [place] [address] Sep, Arthralgia, unspecified join t M25.50 [facility] [address] [place] [id number] [address] [place] [address] Sep, Arthralgia, unspecified join t M25.50 [place] [address] [address] Sep, Arthralgia, unspecified join t M25.50 [place] [address] [place] [id number] [place] [address] Sep, [place] [address] [place] [id number] [place] [address] Aug, Obesity (BMI 30.0-34.9) E66. 9 ; Dysthymia F34.1 and Arthralgia, unspecified joint M25.50 [place] [address] [address] Aug, Obesity (BMI 30.0-34.9) E66. 9 [place] [address] [address] Aug, [place] [address] [address] Jul, [place] [address] [address] Jul, Obesity (BMI 30.0-34.9) E66. 9 [place] [address] [address] Jul, Obesity (BMI 30.0-34.9) E66. 9 and Family history of diabetes mellitus Z83.3 [place] [address] [address] Jul, Obesity (BMI 30.0-34.9) E66. 9 ; Family history of diabetes mellitus Z83.3 and Other headache syndrome G44.89 [place] [address] [address] 17 Jun, 2016 Hypothyroidism, unspecified E03.9 [place] [address] [address] 16 Jun, 2016 [place] [address] [address] May, Hypothyroidism, unspecified E03.9 [place] [address] [address] Apr, Vaginal yeast infection B37. 3 [facility] [place] [address] [address] 02 Apr, 2016 Acute non-recurrent maxillar y sinusitis J01.00 [place] [address] [address] Jan, Migraine NOS/not intrcbl G43 .009 and Hypothyroidism, unspecified E03.9 [place] [address] [address] December, Hypothyroidism, unspecified E03.9 [facility] [place] [address] [address] December, Maxillary sinusitis, unspeci fied chronicity J32.0 ; Cough R05 ; Mild intermittent asthma without complication J45.20 and Environmental allergies Z91.09 [place] [address] [address] [place] [id number] [address] [place] [address] Nov, Hypothyroidism, unspecified E03.9 [place] [address] [address] Nov, Fatigue R53.83 ; Migraine NO S/not intrcbl G43.009 ; Gastro- esophageal reflux disease without esophagitis K21.9 ; Hypothyroidism, unspecified E03.9 and Hormone replacement therapy Z79.890 [place] [address] [address] Jun, Headache, unspecified headac he type R51 and Encounter for immunization Z23 [place] [address] [address] May, URI (upper respiratory infec tion) J06.9 and Unspecified asthma, uncomplicated J45.909 [place] [address] [address] May, [place] [address] [address] May, Migraine NOS/not intrcbl G43 .009 [place] [address] [address] Apr, [place] [address] [address] Mar, Hypothyroid 244.9 and Migrai ne 346.90 [place] [address] [address] Mar, [place] [address] [address] Mar, Fatigue 780.79 [place] [address] [address] Feb, Hormone replacement therapy V07.4 [place] [address] [address] Feb, Vertigo 780.4 [place] [address] [address] Jan, Hormone replacement therapy V07.4 [place] [address] [address] Jan, [place] [address] [address] Jan, [place] [address] [facility] [id number] [address] [place] [address] December, Fatigue 780.79 ; Weight gain 783.1 ; Hormone replacement therapy V07.4 and GERD (gastroesophageal reflux disease) 530.81 [facility] [address] [facility] [id number] [address] [place] [address] December, Fatigue 780.79 ; Weight gain 783.1 ; Hormone replacement therapy V07.4 and GERD (gastroesophageal reflux disease) 530.81 [facility] [address] [facility] [id number] [address] [place] [address] December, IMMUNIZATIONS No Known Immunizations SOCIAL HISTORY Never Assessed REASON FOR VISIT Weight check / blood pressure check-Maria Guadalupe MORROW PLAN OF CARE VITAL SIGNS Height 62 in 2018-06-22 Weight 158.8 lbs 2018-06-22 BMI 29.04 kg/m2 2018-06-22 Blood pressure systolic 112 mmHg 2018-06-22 Blood pressure diastolic 70 mmHg 2018-06-22 MEDICATIONS Unknown Medications RESULTS No Results PROCEDURES No Known [...]
--- OUTSIDE RECORDS SUMMARY | 2019-08-12 00:59 | XMS REPORT ---
Author Author Sandra HANEY Organization [facility] Address [address] [place] [address] Care Team Providers Care Rehabilitation Team Lead Name Role Phone CAROLYN HANEY Unavailable PROBLEMS Type Condition ICD9-CM Code DEL92-DW Code Onset Dates Condition S tatus SNOMED Code Assessment Vaginal yeast infection B37.3 12 Apr, 2016 Ac tive 73425083 Problem Gastro-esophageal reflux disease without esophagitis K21.9 Active 145472958 Problem Unspecified asthma, uncomplicated J45.909 Active 704759430 Problem Mild intermittent asthma without complication J45. 20 Active 740593663 Problem Environmental allergies Z91.09 Active 411147247 Problem Hypothyroidism, unspecified E03.9 Ac tive 99101750 Problem Migraine NOS/not intrcbl G43.009 Activ e 53961152 Problem Fatigue R53.83 Active 17563761 Problem Hormone replacement therapy Z79.890 Ac tive 224229417 ALLERGIES Unknown Allergies SOCIAL HISTORY No smoking Hx information available PLAN OF CARE VITAL SIGNS MEDICATIONS Medication Instructions Dosage Frequency Start Date End Date Duration S tatus Diflucan 150 MG Orally one time. May repeat in 3 days i f symptoms persist. 1 tablet 4 days Active RESULTS No Results PROCEDURES No Known procedures IMMUNIZATIONS No Known Immunizations
--- OUTSIDE RECORDS SUMMARY | 2019-08-12 00:59 | XMS REPORT ---
Author Author Sandra HANEY Organization [employer] Address Unknown Phone Unavailable Care Team Providers Care Assistant Press Operator Offset Name Role Phone CAROLYN HANEY CP Unavailable Allergies No Known Allergies Problems Problem Type Condition Code Onset Dates Condition Statu s Problem Hormone replacement therapy Z79.890 Active Problem Hypothyroidism, unspecified E03.9 Active Problem Fatigue R53.83 Active Problem Unspecified asthma, uncomplicated J45.909 Active Assessment Hypothyroidism, unspecified E03.9 Active Problem Migraine NOS/not intrcbl G43.009 Act remy Problem Gastro-esophageal reflux disease without esophagitis K 21.9 Active Medications Medication Code System Code Instructions Start Date End Date Status Dosage Levothyroxine Sodium [facility] [address]-96 50 MCG Orally Once a da y December 13, 2015 1 tablet Results No Known Results Summary Purpose [employer] Submission
--- OUTSIDE RECORDS SUMMARY | 2019-08-12 00:59 | XMS REPORT ---
Author Author Sandra OLVERA Organization [facility] Address [address] [place] [address] Care Team Providers Care Manager Cargo Name Role Phone WEST OLVERA Unavailable PROBLEMS Type Condition ICD9-CM Code OSZ34-LD Code Onset Dates Condition S tatus SNOMED Code Problem Unspecified asthma, uncomplicated J45.909 Active 466647734 Problem Hormone replacement therapy Z79.890 Ac tive 712385377 Problem Hypothyroidism, unspecified E03.9 Ac tive 17525330 Problem Dysthymia F34.1 Active 21086803 Problem Other headache syndrome G44.89 Active 479888568 Problem Mild intermittent asthma without complication J45. 20 Active 486086006 Problem Fatigue R53.83 Active 74739301 Problem Obesity (BMI 30.0-34.9) E66.9 Active 081938089771545 Problem Environmental allergies Z91.09 Active 372575815 Problem Arthralgia, unspecified joint M25.50 Active 85659136 Problem Family history of rheumatoid arthritis Z82.61 Active 014978706 Problem Migraine NOS/not intrcbl G43.009 Activ e 83162426 Problem Weight gain R63.5 Active 5253534 Problem Gastro-esophageal reflux disease without esophagitis K21.9 Active 192975931 ALLERGIES No Information ENCOUNTERS Encounter Location Date Diagnosis [facility] [address] [facility] [id number] [address] [place] [address] 04 May, 2018 [facility] [address] [facility] [id number] [address] [place] [address] 03 May, 2018 Sore throat J02.9 [facility] [address] [facility] [id number] [address] [place] [address] 24 Apr, 2018 Encounter for immunization Z 23 [facility] [address] [facility] [id number] [address] [place] [address] Apr, Dysuria R30.0 and Hypothyroi dism, unspecified E03.9 [facility] [address] [address] Jul, [facility] [address] [address] Jul, Hypothyroidism, unspecified E03.9 [facility] [address] [address] Oct, [facility] [address] [address] Oct, [facility] [address] [address] Sep, Arthralgia, unspecified join t M25.50 [place] [address] [address] Sep, Arthralgia, unspecified join t M25.50 [place] [address] [address] Sep, Arthralgia, unspecified join t M25.50 [place] [address] [address] Sep, [facility] [address] [address] Aug, Obesity (BMI 30.0-34.9) E66. 9 ; Dysthymia F34.1 and Arthralgia, unspecified joint M25.50 [facility] [address] [address] Aug, Obesity (BMI 30.0-34.9) E66. 9 [facility] [address] [address] Aug, [facility] [address] [address] Jul, [place] [address] [address] Jul, Obesity (BMI 30.0-34.9) E66. 9 [place] [address] [address] Jul, Obesity (BMI 30.0-34.9) E66. 9 and Family history of diabetes mellitus Z83.3 [place] [address] [address] Jul, Obesity (BMI 30.0-34.9) E66. 9 ; Family history of diabetes mellitus Z83.3 and Other headache syndrome G44.89 [place] [address] [address] Jun, Hypothyroidism, unspecified E03.9 [place] [address] [address] Jun, [place] [address] [address] May, Hypothyroidism, unspecified E03.9 [place] [address] [address] Apr, Vaginal yeast infection B37. 3 [facility] [place] [address] [address] Apr, Acute non-recurrent maxillar y sinusitis J01.00 [place] [address] [address] Jan, Migraine NOS/not intrcbl G43 .009 and Hypothyroidism, unspecified E03.9 [place] [address] [address] December, Hypothyroidism, unspecified E03.9 [facility] [place] [address] [address] December, Maxillary sinusitis, unspeci fied chronicity J32.0 ; Cough R05 ; Mild intermittent asthma without complication J45.20 and Environmental allergies Z91.09 [place] [address] [address] Nov, Hypothyroidism, unspecified E03.9 [place] [address] [address] Nov, Fatigue R53.83 ; Migraine NO S/not intrcbl G43.009 ; Gastro- esophageal reflux disease without esophagitis K21.9 ; Hypothyroidism, unspecified E03.9 and Hormone replacement therapy Z79.890 [place] [address] [address] Jun, Headache, unspecified headac he type R51 and Encounter for immunization Z23 [address] [address] May, URI (upper respiratory infec tion) J06.9 and Unspecified asthma, uncomplicated J45.909 [place] [address] [address] May, [place] [address] [address] May, Migraine NOS/not intrcbl G43 .009 [place] [address] [address] Apr, [place] [address] [address] Mar, Hypothyroid 244.9 and Migrai ne 346.90 [place] [address] [address] Mar, [place] [address] [address] Mar, Fatigue 780.79 [place] [address] [address] Feb, Hormone replacement therapy V07.4 [place] [address] [facility] [id number] [address] [place] [address] Feb, Vertigo 780.4 [place] [address] [facility] [id number] [address] [place] [address] Jan, Hormone replacement therapy V07.4 [place] [address] [place] [id number] [address] [place] [address] Jan, [place] [address] [place] [id number] [address] [place] [address] Jan, [place] [address] [place] [address] December, Fatigue 780.79 ; Weight gain 783.1 ; Hormone replacement therapy V07.4 and GERD (gastroesophageal reflux disease) 530.81 [place] [address] [place] [id number] [address] [place] [address] December, Fatigue 780.79 ; Weight gain 783.1 ; Hormone replacement therapy V07.4 and GERD (gastroesophageal reflux disease) 530.81 [place] [address] [address] [facility] [id number] [address] [place] [address] December, IMMUNIZATIONS No Known Immunizations SOCIAL HISTORY Never Assessed REASON FOR VISIT refill request PLAN OF CARE VITAL SIGNS MEDICATIONS Medication Instructions Dosage Frequency Start Date End Date Duration S tatus Cymbalta 30 MG Orally Once a day 1 capsule 24h 30 da y(s) Active RESULTS No Results PROCEDURES No Known [...]
--- OUTSIDE RECORDS SUMMARY | 2019-08-12 00:59 | XMS REPORT ---
Author Author Sandra OLVERA Organization [facility] Address [address] [place] [address] Care Team Providers Care Chief Embalmer Name Role Phone WEST OLVERA Unavailable PROBLEMS Type Condition ICD9-CM Code MTD10-AN Code Onset Dates Condition S tatus SNOMED Code Problem Hormone replacement therapy Z79.890 Ac tive 163548567 Problem Mild intermittent asthma without complication J45. 20 Active 403092764 Problem Fatigue R53.83 Active 93230475 Problem Fibromyalgia M79.7 Active 3797074 05 Problem Primary hypertension I10 Active 80661579 Problem Obesity (BMI 30.0-34.9) E66.9 Active 342659968020758 Problem Environmental allergies Z91.09 Active 730589039 Problem Dysthymia F34.1 Active 56507983 Problem Other headache syndrome G44.89 Active 094625729 Problem Weight gain R63.5 Active 0102508 Problem Hypothyroidism, unspecified E03.9 Ac tive 92289772 Problem Migraine NOS/not intrcbl G43.009 Activ e 79129309 Problem Arthralgia, unspecified joint M25.50 Active 33691411 Problem Gastro-esophageal reflux disease without esophagitis K21.9 Active 862254934 Problem Family history of rheumatoid arthritis Z82.61 Active 285726207 Problem Unspecified asthma, uncomplicated J45.909 Active 411685516 ALLERGIES No Known Allergies ENCOUNTERS Encounter Location Date Diagnosis [facility] [address] [facility] [id number] [address] [place] [address] May, Hypothyroidism, unspecified E03.9 ; Primary hypertension I10 and Arthralgia of multiple joints M25.50 [facility] [address] [facility] [id number] [address] [place] [phone] May, [facility] [address] [facility] [id number] [address] [place] [address] May, Mild intermittent asthma wit hout complication J45.20 ; Hormone replacement therapy Z79.890 ; Hypothyroidism, unspecified E03.9 ; Fibromyalgia M79.7 ; Gastro-esophageal reflux disease without esophagitis K21.9 ; Primary hypertension I10 ; Arthralgia of multiple joints M25.50 and Encounter for immunization Z23 [place] [address] [address] [place] [id number] [address] [place] [address] May, [place] [address] [address] May, [place] [address] [address] May, Sore throat J02.9 [place] [address] [address] 24 Apr, 2018 Encounter for immunization Z 23 [place] [address] [address] Apr, Dysuria R30.0 and Hypothyroi dism, unspecified E03.9 [place] [address] [address] Jul, [place] [address] [address] Jul, Hypothyroidism, unspecified E03.9 [place] [address] [address] Oct, [place] [address] [place] [id number] [address] [place] [phone] Oct, [place] [address] [address] Sep, Arthralgia, unspecified join t M25.50 [place] [address] [place] [id number] [place] [address] Sep, Arthralgia, unspecified join t M25.50 [place] [address] [address] 16 Sep, 2016 Arthralgia, unspecified join t M25.50 [place] [address] [address] 07 Sep, 2016 [place] [address] [address] Aug, Obesity (BMI 30.0-34.9) E66. 9 ; Dysthymia F34.1 and Arthralgia, unspecified joint M25.50 [place] [address] [address] 11 Aug, 2016 Obesity (BMI 30.0-34.9) E66. 9 [place] [address] [address] Aug, [place] [address] [address] Jul, [place] [address] [address] Jul, Obesity (BMI 30.0-34.9) E66. 9 [place] [address] [address] Jul, Obesity (BMI 30.0-34.9) E66. 9 and Family history of diabetes mellitus Z83.3 [place] [address] [address] Jul, Obesity (BMI 30.0-34.9) E66. 9 ; Family history of diabetes mellitus Z83.3 and Other headache syndrome G44.89 [place] [address] [address] Jun, Hypothyroidism, unspecified E03.9 [place] [address] [address] Jun, [place] [address] [address] May, Hypothyroidism, unspecified E03.9 [place] [address] [address] Apr, Vaginal yeast infection B37. 3 [facility] [address] [address] 02 Apr, 2016 Acute non-recurrent maxillar y sinusitis J01.00 [place] [address] [address] Jan, Migraine NOS/not intrcbl G43 .009 and Hypothyroidism, unspecified E03.9 [place] [address] [address] December, Hypothyroidism, unspecified E03.9 [facility] [address] [address] December, Maxillary sinusitis, unspeci fied chronicity J32.0 ; Cough R05 ; Mild intermittent asthma without complication J45.20 and Environmental allergies Z91.09 [place] [address] [address] Nov, Hypothyroidism, unspecified E03.9 [place] [address] [address] Nov, Fatigue R53.83 ; Migraine NO S/not intrcbl G43.009 ; Gastro- esophageal reflux disease without esophagitis K21.9 ; Hypothyroidism, unspecified E03.9 and Hormone replacement therapy Z79.890 [place] [address] [address] Jun, Headache, unspecified headac he type R51 and Encounter for immunization Z23 [place] [address] [address] 09 May, 2015 URI (upper respiratory infec tion) J06.9 and Unspecified asthma, uncomplicated J45.909 [facility] [address] [place] [id number] [place] [address] May, [place] [address] [address] May, Migraine NOS/not intrcbl G43 .009 [facility] [address] [place] [id number] [place] [address] Apr, [facility] [address] [address] Mar, Hypothyroid 244.9 and Migrai ne 346.90 [place] [address] [address] Mar, [place] [address] [place] [id number] [address] [place] [address] Mar, Fatigue 780.79 [place] [address] [place] [id number] [place] [address] Feb, Hormone replacement therapy V07.4 [place] [address] [place] [id number] [address] [place] [address] Feb, Vertigo 780.4 [place] [address] [place] [id number] [address] [place] [address] Jan, Hormone replacement therapy V07.4 [place] [address] [place] [id number] [address] [place] [phone] Jan, [facility] [address] [place] [id number] [address] [place] [address] Jan, [place] [address] [place] [id number] [place] [address] December, Fatigue 780.79 ; Weight gain 783.1 ; Hormone replacement therapy V07.4 and GERD (gastroesophageal reflux disease) 530.81 [place] [address] [place] [id number] [address] [place] [address] December, Fatigue 780.79 ; Weight gain 783.1 ; Hormone replacement therapy V07.4 and GERD (gastroesophageal reflux disease) 530.81 [facility] [address] [facility] [id number] [address] [place] [address] December, IMMUNIZATIONS Vaccine Route Administration Date Status TWINRIX (HEP A/B) IM Intramuscular Jun 04, 2018 Administered SOCIAL HISTORY Never Assessed REASON FOR VISIT Establish Care-DIRSS bridges, pt want to verify her meds, she used her inhaler thi s morning, pt also want to do the Hep A and Hep B vaccine PLAN OF CARE Activity Details Follow Up 6 Months or as indicated by lab Reason: VITAL SIGNS Height 62 in 2018-06-04 Weight 155.0 lbs 2018-06-04 Temperature 96.6 degrees Fahrenheit 2018-06-04 Heart Rate 105 bpm 2018-06-04 Respiratory Rate 2018-06-04 Oximetry on room air:98 % 2018-06-04 BMI 28.35 kg/m2 2018-06-04 Blood pressure systolic 130 mmHg 2018-06-04 Blood pressure diastolic 86 mmHg 2018-06-04 MEDICATIONS Medication Instructions Dosage Frequency Start Date End Date Duration S tatus Omeprazole 40 mg Orally twice a day TAKE ONE CAPSULE BY MOUTH DAILY 12h 30 Active ProAir HFA 108 (90 base) mcg/act Inhalation every 4 hrs 2 puffs as needed 4h Apr, 30 days Active Estradiol 2 MG Orally Once a day 1 tablet 24h May, 3 0 day(s) Active Cymbalta 30 MG Orally Once a day 1 capsule 24h 30 da y(s) Active Zyrtec Allergy 10 MG Orally Once a day 1 capsule 24h 30 day(s) Active Phentermine HCl 37.5 MG Orally Once a day 1 capsule 24h Active Lisinopril-Hydrochlorothiazide 10-12.5 MG Orally Once a day 1 tablet 24h 30 day(s) Active Estradiol 0.5 MG Orally Once a day 1 tablet 24h May, 30 day(s) Active Levothyroxine Sodium 50 mcg Orally Once a day 1 tablet 24h 27 A , 2015 30 day(s) Active RESULTS No Results PROCEDURES Procedure Date Ordered Result Body Site TWINRIX (HEP A/B) Jun 04, 2018 SINGLE IMMUNIZATION ADMIN Jun 04, 2018 INSTRUCTIONS MEDICATIONS ADMINISTERED No Known Medications MEDICAL (GENERAL) HISTORY Type Description Date Medical History seasonal allergies Medical History asthma Medical History gastroesophageal reflux disease (GERD) Medical History migraine headaches Medical History Hypertension Surgical History section x2 Surgical History gallbladder 2010 Surgical History appendectomy 2012 Surgical History Hysterectomy Had only one ov tomas and small fallopian tube. Had total hyst. Dr Hilton 2012 Hospitalization History Hospitalization History Hysterectomy/appendectomy Hospitalization History Dehydration
--- OUTSIDE RECORDS SUMMARY | 2019-08-12 00:59 | XMS REPORT ---
Author Author Sandra HANEY Organization [facility] Address [address] [place] [address] Care Team Providers Care Abe Teacher Name Role Phone CAROLYN HANEY Unavailable PROBLEMS Type Condition ICD9-CM Code VQF31-MH Code Onset Dates Condition S tatus SNOMED Code Problem Unspecified asthma, uncomplicated J45.909 Active 573809001 Problem Hormone replacement therapy Z79.890 Ac tive 765930345 Problem Hypothyroidism, unspecified E03.9 Ac tive 10612649 Problem Dysthymia F34.1 Active 81205425 Problem Other headache syndrome G44.89 Active 969604787 Problem Mild intermittent asthma without complication J45. 20 Active 475446378 Problem Fatigue R53.83 Active 40539707 Problem Obesity (BMI 30.0-34.9) E66.9 Active 591915679049890 Problem Environmental allergies Z91.09 Active 640661052 Problem Arthralgia, unspecified joint M25.50 Active 88680286 Problem Family history of rheumatoid arthritis Z82.61 Active 342766787 Problem Migraine NOS/not intrcbl G43.009 Activ e 13976683 Problem Weight gain R63.5 Active 3675184 Problem Gastro-esophageal reflux disease without esophagitis K21.9 Active 878422034 ALLERGIES No Information ENCOUNTERS Encounter Location Date Diagnosis [facility] [address] [facility] [id number] [address] [place] [phone] Jul, [facility] [address] [facility] [id number] [address] [place] [address] Jul, Hypothyroidism, unspecified E03.9 [facility] [address] [facility] [id number] [address] [place] [phone] Oct, [facility] [address] [facility] [id number] [address] [place] [phone] Oct, [facility] [address] [place] [address] Sep, Arthralgia, unspecified join t M25.50 [facility] [address] [facility] [id number] [address] [place] [address] Sep, Arthralgia, unspecified join t M25.50 [facility] [address] [place] [id number] [address] [place] [phone] Sep, Arthralgia, unspecified join t M25.50 [place] [address] [address] Sep, [place] [address] [address] Aug, Obesity (BMI 30.0-34.9) E66. 9 ; Dysthymia F34.1 and Arthralgia, unspecified joint M25.50 [place] [address] [address] Aug, Obesity (BMI 30.0-34.9) E66. 9 [place] [address] [address] Aug, [place] [address] [address] Jul, [place] [address] [address] Jul, Obesity (BMI 30.0-34.9) E66. 9 [place] [address] [address] Jul, Obesity (BMI 30.0-34.9) E66. 9 and Family history of diabetes mellitus Z83.3 [place] [address] [address] Jul, Obesity (BMI 30.0-34.9) E66. 9 ; Family history of diabetes mellitus Z83.3 and Other headache syndrome G44.89 [place] [address] [address] 17 Jun, 2016 Hypothyroidism, unspecified E03.9 [place] [address] [address] 16 Jun, 2016 [place] [address] [address] May, Hypothyroidism, unspecified E03.9 [place] [address] [address] Apr, Vaginal yeast infection B37. 3 [facility] [place] [address] [address] 02 Apr, 2016 Acute non-recurrent maxillar y sinusitis J01.00 [place] [address] [address] Jan, Migraine NOS/not intrcbl G43 .009 and Hypothyroidism, unspecified E03.9 [place] [address] [address] December, Hypothyroidism, unspecified E03.9 [facility] [place] [address] [address] December, Maxillary sinusitis, unspeci fied chronicity J32.0 ; Cough R05 ; Mild intermittent asthma without complication J45.20 and Environmental allergies Z91.09 [place] [address] [address] Nov, Hypothyroidism, unspecified E03.9 [place] [address] [address] Nov, Fatigue R53.83 ; Migraine NO S/not intrcbl G43.009 ; Gastro- esophageal reflux disease without esophagitis K21.9 ; Hypothyroidism, unspecified E03.9 and Hormone replacement therapy Z79.890 [place] [address] [address] Jun, Headache, unspecified headac he type R51 and Encounter for immunization Z23 [place] [address] [address] May, URI (upper respiratory infec tion) J06.9 and Unspecified asthma, uncomplicated J45.909 [place] [address] [address] May, [place] [address] [address] May, Migraine NOS/not intrcbl G43 .009 [place] [address] [address] Apr, [place] [address] [address] Mar, Hypothyroid 244.9 and Migrai ne 346.90 [place] [address] [address] Mar, [place] [address] [address] Mar, Fatigue 780.79 [place] [address] [address] Feb, Hormone replacement therapy V07.4 [place] [address] [address] Feb, Vertigo 780.4 [place] [address] [address] Jan, Hormone replacement therapy V07.4 [place] [address] [address] Jan, [place] [address] [address] Jan, [facility] [address] [facility] [id number] [address] [place] [address] December, Fatigue 780.79 ; Weight gain 783.1 ; Hormone replacement therapy V07.4 and GERD (gastroesophageal reflux disease) 530.81 [facility] [address] [facility] [id number] [address] [place] [address] December, Fatigue 780.79 ; Weight gain 783.1 ; Hormone replacement therapy V07.4 and GERD (gastroesophageal reflux disease) 530.81 [facility] [address] [facility] [id number] [address] [place] [address] December, IMMUNIZATIONS No Known Immunizations SOCIAL HISTORY Never Assessed REASON FOR VISIT needs appt/lab PLAN OF CARE VITAL SIGNS MEDICATIONS Unknown Medications RESULTS No Results PROCEDURES [...]
--- OUTSIDE RECORDS SUMMARY | 2019-08-12 00:59 | XMS REPORT ---
Author Author Sandra OLVERA Organization [facility] [place] Address [address] [place] [address] Care Team Providers Care Bindery Machine Setter Name Role Phone WEST OLVERA Unavailable PROBLEMS Type Condition ICD9-CM Code NFA28-DR Code Onset Dates Condition S tatus SNOMED Code Problem Hormone replacement therapy Z79.890 Ac tive 859333240 Problem Mild intermittent asthma without complication J45. 20 Active 829597220 Problem Fatigue R53.83 Active 09852691 Problem Fibromyalgia M79.7 Active 5371029 05 Problem Primary hypertension I10 Active 49194251 Problem Obesity (BMI 30.0-34.9) E66.9 Active 711498101391604 Problem Environmental allergies Z91.09 Active 041938703 Problem Dysthymia F34.1 Active 66919514 Problem Other headache syndrome G44.89 Active 144931187 Problem Weight gain R63.5 Active 9054802 Problem Hypothyroidism, unspecified E03.9 Ac tive 09011023 Problem Migraine NOS/not intrcbl G43.009 Activ e 17715548 Problem Arthralgia, unspecified joint M25.50 Active 27198490 Problem Gastro-esophageal reflux disease without esophagitis K21.9 Active 195919019 Problem Family history of rheumatoid arthritis Z82.61 Active 793183297 Problem Unspecified asthma, uncomplicated J45.909 Active 675458770 ALLERGIES No Information ENCOUNTERS Encounter Location Date Diagnosis [facility] [place] [address] [facility] [id number] [address] [place] [address] Jun, [facility] [place] [address] [facility] [id number] [address] [place] [address] Jun, [facility] [place] [address] [facility] [id number] [address] [place] [address] Jun, [facility] [place] [address] [facility] [id number] [address] [place] [address] May, Hypothyroidism, unspecified E03.9 ; Primary hypertension I10 and Arthralgia of multiple joints M25.50 [facility] [place] [address] [place] [id number] [address] [place] [address] May, [place] [address] [address] [place] [id number] [address] [place] [address] May, Mild intermittent asthma wit hout complication J45.20 ; Hormone replacement therapy Z79.890 ; Hypothyroidism, unspecified E03.9 ; Fibromyalgia M79.7 ; Gastro-esophageal reflux disease without esophagitis K21.9 ; Primary hypertension I10 ; Arthralgia of multiple joints M25.50 and Encounter for immunization Z23 [place] [address] [address] [place] [id number] [address] [place] [address] May, [place] [address] [address] May, [place] [address] [address] May, Sore throat J02.9 [place] [address] [address] [place] [id number] [place] [address] Apr, Encounter for immunization Z 23 [place] [address] [address] [place] [id number] [address] [place] [address] Apr, Dysuria R30.0 and Hypothyroi dism, unspecified E03.9 [place] [address] [address] [place] [id number] [address] [place] [address] Jul, [place] [address] [address] [place] [id number] [address] [place] [address] Jul, Hypothyroidism, unspecified E03.9 [place] [address] [address] [place] [id number] [address] [place] [address] Oct, [place] [address] [address] [place] [id number] [address] [place] [address] Oct, [place] [id number] [place] [address] Sep, Arthralgia, unspecified join t M25.50 [facility] [place] [address] [place] [id number] [address] [place] [address] Sep, Arthralgia, unspecified join t M25.50 [place] [address] [address] Sep, Arthralgia, unspecified join t M25.50 [place] [address] [address] [place] [id number] [place] [address] Sep, [place] [address] [address] [place] [id number] [place] [address] Aug, Obesity (BMI 30.0-34.9) E66. 9 ; Dysthymia F34.1 and Arthralgia, unspecified joint M25.50 [place] [address] [address] Aug, Obesity (BMI 30.0-34.9) E66. 9 [place] [address] [address] Aug, [place] [address] [address] Jul, [place] [address] [address] Jul, Obesity (BMI 30.0-34.9) E66. 9 [place] [address] [address] Jul, Obesity (BMI 30.0-34.9) E66. 9 and Family history of diabetes mellitus Z83.3 [place] [address] [address] Jul, Obesity (BMI 30.0-34.9) E66. 9 ; Family history of diabetes mellitus Z83.3 and Other headache syndrome G44.89 [place] [address] [address] 17 Jun, 2016 Hypothyroidism, unspecified E03.9 [place] [address] [address] 16 Jun, 2016 [place] [address] [address] May, Hypothyroidism, unspecified E03.9 [place] [address] [address] Apr, Vaginal yeast infection B37. 3 [facility] IN [place] [address] [address] 02 Apr, 2016 Acute non-recurrent maxillar y sinusitis J01.00 [place] [address] [address] Jan, Migraine NOS/not intrcbl G43 .009 and Hypothyroidism, unspecified E03.9 [place] [address] [address] December, Hypothyroidism, unspecified E03.9 [facility] [place] [address] [address] December, Maxillary sinusitis, unspeci fied chronicity J32.0 ; Cough R05 ; Mild intermittent asthma without complication J45.20 and Environmental allergies Z91.09 [place] [address] [address] [place] [id number] [address] [place] [address] Nov, Hypothyroidism, unspecified E03.9 [place] [address] [address] Nov, Fatigue R53.83 ; Migraine NO S/not intrcbl G43.009 ; Gastro- esophageal reflux disease without esophagitis K21.9 ; Hypothyroidism, unspecified E03.9 and Hormone replacement therapy Z79.890 [place] [address] [address] Jun, Headache, unspecified headac he type R51 and Encounter for immunization Z23 [place] [address] [address] May, URI (upper respiratory infec tion) J06.9 and Unspecified asthma, uncomplicated J45.909 [place] [address] [address] May, [place] [address] [address] May, Migraine NOS/not intrcbl G43 .009 [place] [address] [address] Apr, [place] [address] [address] Mar, Hypothyroid 244.9 and Migrai ne 346.90 [place] [address] [address] Mar, [place] [address] [address] Mar, Fatigue 780.79 [place] [address] [address] Feb, Hormone replacement therapy V07.4 [place] [address] [address] Feb, Vertigo 780.4 [place] [address] [address] Jan, Hormone replacement therapy V07.4 [place] [address] [address] Jan, [place] [address] [address] Jan, [place] [address] [address] [facility] [id number] [address] [place] [address] December, Fatigue 780.79 ; Weight gain 783.1 ; Hormone replacement therapy V07.4 and GERD (gastroesophageal reflux disease) 530.81 [facility] [place] [address] [facility] [id number] [address] [place] [address] December, Fatigue 780.79 ; Weight gain 783.1 ; Hormone replacement therapy V07.4 and GERD (gastroesophageal reflux disease) 530.81 [facility] [place] [address] [facility] [id number] [address] [place] [address] December, IMMUNIZATIONS No Known Immunizations SOCIAL HISTORY Never Assessed REASON FOR VISIT Controlled Med Refill PLAN OF CARE VITAL SIGNS MEDICATIONS Medication Instructions Dosage Frequency Start Date End Date Duration S tatus Phentermine HCl 37.5 MG Orally Once a day 1 capsule 24h 28 days Active RESULTS No Results PROCEDURES [...]
--- OUTSIDE RECORDS SUMMARY | 2019-08-12 00:59 | XMS REPORT ---
Author Author Sandra OLVERA Organization [facility] Address [address] [place] [address] Care Team Providers Care Marketing Ambassador Name Role Phone WEST OLVERA Unavailable PROBLEMS Type Condition ICD9-CM Code OKQ24-OU Code Onset Dates Condition S tatus SNOMED Code Problem Unspecified asthma, uncomplicated J45.909 Active 022227452 Problem Hormone replacement therapy Z79.890 Ac tive 566624325 Problem Hypothyroidism, unspecified E03.9 Ac tive 98976566 Problem Dysthymia F34.1 Active 90603080 Problem Other headache syndrome G44.89 Active 904947133 Problem Mild intermittent asthma without complication J45. 20 Active 294632889 Problem Fatigue R53.83 Active 12278958 Problem Obesity (BMI 30.0-34.9) E66.9 Active 579987330499908 Problem Environmental allergies Z91.09 Active 774222946 Problem Arthralgia, unspecified joint M25.50 Active 73082000 Problem Family history of rheumatoid arthritis Z82.61 Active 198558610 Problem Migraine NOS/not intrcbl G43.009 Activ e 72691520 Problem Weight gain R63.5 Active 5213244 Problem Gastro-esophageal reflux disease without esophagitis K21.9 Active 800827506 ALLERGIES No Information ENCOUNTERS Encounter Location Date Diagnosis [facility] [address] [facility] [id number] [address] [place] [address] May, [facility] [address] [facility] [id number] [address] [place] [address] May, [facility] [address] [facility] [id number] [address] [place] [address] May, Sore throat J02.9 [facility] [address] [facility] [id number] [address] [place] [address] Apr, Encounter for immunization Z 23 [place] [address] [address] Apr, Dysuria R30.0 and Hypothyroi dism, unspecified E03.9 [place] [address] [address] Jul, [place] [address] [address] Jul, Hypothyroidism, unspecified E03.9 [place] [address] [address] Oct, [place] [address] [address] Oct, [place] [address] [address] Sep, Arthralgia, unspecified join t M25.50 [place] [address] [address] Sep, Arthralgia, unspecified join t M25.50 [place] [address] [address] Sep, Arthralgia, unspecified join t M25.50 [place] [address] [address] Sep, [place] [address] [address] Aug, Obesity (BMI 30.0-34.9) E66. 9 ; Dysthymia F34.1 and Arthralgia, unspecified joint M25.50 [place] [address] [address] Aug, Obesity (BMI 30.0-34.9) E66. 9 [place] [address] [address] Aug, [place] [address] [place] [id number] [address] [place] [address] Jul, [place] [address] [address] [place] [id number] [place] [address] Jul, Obesity (BMI 30.0-34.9) E66. 9 [place] [address] [address] Jul, Obesity (BMI 30.0-34.9) E66. 9 and Family history of diabetes mellitus Z83.3 [place] [address] [address] [place] [id number] [place] [address] Jul, Obesity (BMI 30.0-34.9) E66. 9 ; Family history of diabetes mellitus Z83.3 and Other headache syndrome G44.89 [place] [address] [address] Jun, Hypothyroidism, unspecified E03.9 [place] [address] [address] Jun, [place] [address] [address] May, Hypothyroidism, unspecified E03.9 [place] [address] [address] Apr, Vaginal yeast infection B37. 3 [facility] N [place] [id number] [address] [place] [address] 02 Apr, 2016 Acute non-recurrent maxillar y sinusitis J01.00 [place] [address] [address] [place] [id number] [place] [address] Jan, Migraine NOS/not intrcbl G43 .009 and Hypothyroidism, unspecified E03.9 [place] [address] [address] [place] [id number] [address] [place] [address] December, Hypothyroidism, unspecified E03.9 [facility] [address] [address] December, Maxillary sinusitis, unspeci fied chronicity J32.0 ; Cough R05 ; Mild intermittent asthma without complication J45.20 and Environmental allergies Z91.09 [facility] [address] [address] Nov, Hypothyroidism, unspecified E03.9 [place] [address] [address] Nov, Fatigue R53.83 ; Migraine NO S/not intrcbl G43.009 ; Gastro- esophageal reflux disease without esophagitis K21.9 ; Hypothyroidism, unspecified E03.9 and Hormone replacement therapy Z79.890 [place] [address] [address] Jun, Headache, unspecified headac he type R51 and Encounter for immunization Z23 [place] [address] [address] May, URI (upper respiratory infec tion) J06.9 and Unspecified asthma, uncomplicated J45.909 [place] [address] [address] May, [facility] [address] [address] May, Migraine NOS/not intrcbl G43 .009 [place] [address] [address] Apr, [place] [address] [address] Mar, Hypothyroid 244.9 and Migrai ne 346.90 [place] [address] [address] Mar, [place] [address] [address] Mar, Fatigue 780.79 [place] [id number] N [facility] [id number] [address] [place] [address] Feb, Hormone replacement therapy V07.4 [place] [address] [address] [facility] [id number] [address] [place] [address] Feb, Vertigo 780.4 [place] [address] [address] [facility] [id number] [address] [place] [address] Jan, Hormone replacement therapy V07.4 [place] [address] [address] [facility] [id number] [address] [place] [address] Jan, [place] [address] [address] [facility] [id number] [address] [place] [address] Jan, [place] [address] [address] [facility] [id number] [address] [place] [address] December, Fatigue 780.79 ; Weight gain 783.1 ; Hormone replacement therapy V07.4 and GERD (gastroesophageal reflux disease) 530.81 [place] [address] [address] [facility] [id number] [address] [place] [address] December, Fatigue 780.79 ; Weight gain 783.1 ; Hormone replacement therapy V07.4 and GERD (gastroesophageal reflux disease) 530.81 [place] [address] [address] [facility] [id number] [address] [place] [address] December, IMMUNIZATIONS No Known Immunizations SOCIAL HISTORY Never Assessed REASON FOR VISIT medication refill PLAN OF CARE VITAL SIGNS MEDICATIONS Medication Instructions Dosage Frequency Start Date End Date Duration S tatus Omeprazole 40 mg TAKE ONE CAPSULE BY MOUTH DAILY 30 Active RESULTS No Results PROCEDURES No Known [...]
--- OUTSIDE RECORDS SUMMARY | 2019-08-12 00:59 | XMS REPORT ---
Author Author Sandra OLVERA Organization [facility] Address [address] [place] [address] Care Team Providers Care Platform Man Name Role Phone WEST OLVERA Unavailable PROBLEMS Type Condition ICD9-CM Code WTF41-YU Code Onset Dates Condition S tatus SNOMED Code Problem Unspecified asthma, uncomplicated J45.909 Active 329918671 Problem Hormone replacement therapy Z79.890 Ac tive 663060030 Problem Hypothyroidism, unspecified E03.9 Ac tive 21835849 Problem Dysthymia F34.1 Active 70741163 Problem Other headache syndrome G44.89 Active 753790877 Problem Mild intermittent asthma without complication J45. 20 Active 159944450 Problem Fatigue R53.83 Active 92235052 Problem Obesity (BMI 30.0-34.9) E66.9 Active 940252428331734 Problem Environmental allergies Z91.09 Active 238831792 Problem Arthralgia, unspecified joint M25.50 Active 34631405 Problem Family history of rheumatoid arthritis Z82.61 Active 444390109 Problem Migraine NOS/not intrcbl G43.009 Activ e 86478751 Problem Weight gain R63.5 Active 5962119 Problem Gastro-esophageal reflux disease without esophagitis K21.9 Active 689827783 ALLERGIES No Known Allergies ENCOUNTERS Encounter Location Date Diagnosis [facility] [address] [facility] [id number] [address] [place] [address] May, [facility] [address] [facility] [id number] [address] [place] [address] May, [facility] [address] [facility] [id number] [address] [place] [address] May, Sore throat J02.9 [facility] [address] [facility] [id number] [address] [place] [address] Apr, Encounter for immunization Z 23 [place] [address] [address] Apr, Dysuria R30.0 and Hypothyroi dism, unspecified E03.9 [place] [address] [address] Jul, [place] [address] [address] Jul, Hypothyroidism, unspecified E03.9 [place] [address] [address] Oct, [place] [address] [address] Oct, [place] [address] [address] Sep, Arthralgia, unspecified join t M25.50 [place] [address] [address] Sep, Arthralgia, unspecified join t M25.50 [place] [address] [address] Sep, Arthralgia, unspecified join t M25.50 [place] [address] [address] Sep, [place] [address] [address] Aug, Obesity (BMI 30.0-34.9) E66. 9 ; Dysthymia F34.1 and Arthralgia, unspecified joint M25.50 [place] [address] [address] Aug, Obesity (BMI 30.0-34.9) E66. 9 [place] [address] [address] Aug, [facility] [address] [place] [id number] [address] [place] [address] Jul, [facility] [address] [place] [id number] [place] [address] Jul, Obesity (BMI 30.0-34.9) E66. 9 [place] [address] [address] [place] [id number] [place] [address] Jul, Obesity (BMI 30.0-34.9) E66. 9 and Family history of diabetes mellitus Z83.3 [place] [address] [address] [place] [id number] [place] [address] Jul, Obesity (BMI 30.0-34.9) E66. 9 ; Family history of diabetes mellitus Z83.3 and Other headache syndrome G44.89 [place] [address] [address] Jun, Hypothyroidism, unspecified E03.9 [place] [address] [address] Jun, [place] [address] [address] May, Hypothyroidism, unspecified E03.9 [place] [address] [address] [place] [id number] [address] [place] [address] Apr, Vaginal yeast infection B37. 3 [facility] N [place] [id number] [address] [place] [address] 02 Apr, 2016 Acute non-recurrent maxillar y sinusitis J01.00 [place] [address] [address] [place] [id number] [place] [address] Jan, Migraine NOS/not intrcbl G43 .009 and Hypothyroidism, unspecified E03.9 [place] [address] [address] [place] [id number] [address] [place] [address] December, Hypothyroidism, unspecified E03.9 [facility] [address] [address] December, Maxillary sinusitis, unspeci fied chronicity J32.0 ; Cough R05 ; Mild intermittent asthma without complication J45.20 and Environmental allergies Z91.09 [facility] [address] [address] Nov, Hypothyroidism, unspecified E03.9 [place] [address] [address] Nov, Fatigue R53.83 ; Migraine NO S/not intrcbl G43.009 ; Gastro- esophageal reflux disease without esophagitis K21.9 ; Hypothyroidism, unspecified E03.9 and Hormone replacement therapy Z79.890 [place] [address] [address] Jun, Headache, unspecified headac he type R51 and Encounter for immunization Z23 [place] [address] [address] May, URI (upper respiratory infec tion) J06.9 and Unspecified asthma, uncomplicated J45.909 [place] [address] [address] May, [facility] [address] [address] May, Migraine NOS/not intrcbl G43 .009 [place] [address] [address] Apr, [place] [address] [address] Mar, Hypothyroid 244.9 and Migrai ne 346.90 [place] [address] [address] Mar, [place] [address] [address] Mar, Fatigue 780.79 [place] [address] [address] [facility] [id number] [address] [place] [address] Feb, Hormone replacement therapy V07.4 [place] [address] [address] [facility] [id number] [address] [place] [address] Feb, Vertigo 780.4 [place] [address] [id number] [address] [place] [address] Jan, Hormone replacement therapy V07.4 [place] [address] [id number] [address] [place] [address] Jan, [place] [address] [address] [facility] [id number] [address] [place] [address] Jan, [place] [address] [address] [facility] [id number] [address] [place] [address] December, Fatigue 780.79 ; Weight gain 783.1 ; Hormone replacement therapy V07.4 and GERD (gastroesophageal reflux disease) 530.81 [place] [address] [address] [facility] [id number] [address] [place] [address] December, Fatigue 780.79 ; Weight gain 783.1 ; Hormone replacement therapy V07.4 and GERD (gastroesophageal reflux disease) 530.81 [place] [address] [address] [facility] [id number] [address] [place] [address] December, IMMUNIZATIONS No Known Immunizations SOCIAL HISTORY Never Assessed REASON FOR VISIT Sore throat rick masterson PLAN OF CARE Activity Details Follow Up prn Reason: VITAL SIGNS Height 62 in 2018-05-20 Temperature 96.8 degrees Fahrenheit 2018-05-20 Heart Rate 99 bpm 2018-05-20 Respiratory Rate 18 2018-05-20 Blood pressure systolic 112 mmHg 2018-05-20 Blood pressure diastolic 64 mmHg 2018-05-20 MEDICATIONS Medication Instructions Dosage Frequency Start Date End Date Duration S bharat Lisinopril-Hydrochlorothiazide 10-12.5 MG Orally Once a day 1 tablet 24h 30 day(s) Active Levothyroxine Sodium 50 mcg Orally Once a day 1 tablet 24h 27 A pr, 2015 30 day(s) Active Imitrex 100 MG Orally Once a day prn May repeat in 2 h ours 0.5 - 1 tablet as needed one time Mar, 1 day(s) Active Omeprazole 40 TAKE ONE CAPSULE BY MOUTH DAILY 30 Active ProAir HFA 108 (90 Base) MCG/ACT Inhalation every 4 hrs 2 puffs as needed 4h Apr, 30 days Active Phentermine HCl 37.5 MG Orally Once a day 1 capsule 24h Active Cymbalta 30 MG Orally Once a day 1 capsule 24h 30 da y(s) Active Zyrtec Allergy 10 MG Orally Once a day 1 capsule 24h 30 day(s) Active Estradiol 1 MG Orally Once a day 2.5 tabs 24h 30 Active RESULTS Name Result Date Reference Range STREP A (IN HOUSE) 2018-05-20 STREP A Negative Control + Lot # [id number] Exp date 01/15/2019 PROCEDURES Procedure Date Ordered Result Body Site STREP A ASSAY W/OPTIC May 20, 2018 INSTRUCTIONS MEDICATIONS ADMINISTERED No Known Medications [...]
--- OUTSIDE RECORDS SUMMARY | 2019-08-12 00:59 | XMS REPORT ---
Author Author Sandra HANEY Organization [facility] Address [address] [place] [address] Care Team Providers Care Shaping Machine Operator Name Role Phone CAROLYN HANEY Unavailable PROBLEMS Type Condition ICD9-CM Code [id number] Code Onset Dates Condition S tatus SNOMED Code Problem Unspecified asthma, uncomplicated J45.909 Active 422359067 Problem Hormone replacement therapy Z79.890 Ac tive 214312560 Problem Hypothyroidism, unspecified E03.9 Ac tive 93242701 Problem Dysthymia F34.1 Active 96560147 Problem Other headache syndrome G44.89 Active 690785578 Problem Mild intermittent asthma without complication J45. 20 Active 728832471 Problem Fatigue R53.83 Active 71940919 Problem Obesity (BMI 30.0-34.9) E66.9 Active 705612807835522 Problem Environmental allergies Z91.09 Active 659843496 Problem Arthralgia, unspecified joint M25.50 Active 06958162 Problem Family history of rheumatoid arthritis Z82.61 Active 230159001 Problem Migraine NOS/not intrcbl G43.009 Activ e 28381956 Problem Weight gain R63.5 Active 1197383 Problem Gastro-esophageal reflux disease without esophagitis K21.9 Active 015622280 ALLERGIES Unknown Allergies SOCIAL HISTORY No smoking Hx information available PLAN OF CARE VITAL SIGNS MEDICATIONS Unknown Medications RESULTS No Results PROCEDURES No Known procedures IMMUNIZATIONS No Known Immunizations
--- OUTSIDE RECORDS SUMMARY | 2019-08-12 00:59 | XMS REPORT ---
Author Author Sue HANEY [facility] eClinicalWorks Address Unknown Phone Unavailable Care Team Providers Care Insight Leader Name Role Phone CAROLYN HANEY CP Unavailable Allergies, Adverse Reactions, Alerts Substance Reaction Event Type N.K.D.A. Info Not Available Non Drug Allergy Problems Problem Type Condition Code Onset Dates Condition Statu s Problem Migraine NOS/not intrcbl G43.009 Act remy Problem Gastro-esophageal reflux disease without esophagitis K 21.9 Active Problem Hypothyroidism, unspecified E03.9 Active Assessment Encounter for immunization Z23 A ctive Problem Unspecified asthma, uncomplicated J45.909 Active Assessment Headache, unspecified headache type R51 Active Medications Medication Code System Code Instructions Start Date End Date Status Dosage Effexor XR [facility] [address]-82 37.5 MG Orally Once a day May 18, 2015 1 capsule with food ProAir HFA [facility] [address]-36 108 (90 Base) MCG/ACT Inhalation every 4 hrs 2 puffs as needed Verapamil HCl CR [facility] [address]-49 120 MG Orally Once a day March 02, 2015 1 tablet in the morning with food Estradiol [facility] [address]-19 2 MG Orally Once a day 1 tablet Levothyroxine Sodium [facility] 55730046875 25 Orally Once a day 1 tablet Omeprazole [facility] [address]-88 40 MG Orally Once a day 1 capsule Zyrtec Allergy [facility] [address]-80 10 MG Orally Once a day 1 tablet as needed Imitrex [facility] [address]-38 100 MG Orally Once a day pr n May repeat in 2 hours Apr 04, 2015 0.5 - 1 tablet as ne eded one time Procedures Procedure Coding System Code Date SINGLE IMMUNIZATION ADMIN CPT-4 11696 Jun ASSAY THYROID STIM HORMONE CPT-4 72725 Jun 182014 FLUARIX QUAD (3 & UP)--2014 CPT-4 70219 N 2014 Office Visit, Est Pt., Level 3 CPT-4 49289 N 2014 VENIPUNCT, ROUTINE* CPT-4 13473 Jul 06, 2015 Vital Signs Date/Time: Jul 06, 2015 Temperature 98.1 F Weight 191.2 lbs Height 62 in BMI 34.97 Index Blood Pressure Diastolic 86 mmHg Blood Pressure Systolic 120 mmHg Cardiac Monitoring Heart Rate 80 bpm Results Name Result Date Reference Range Unit Abnormali ty Flag ROUTINE VENIPUNCTURE Immunizations Vaccine Administration Date FLUARIX QUAD (3 & UP)-GSK-2014Jul 06, 2015 Summary Purpose eClinicalWorks Submission
--- OUTSIDE RECORDS SUMMARY | 2019-08-12 00:59 | XMS REPORT ---
Author Author Sandra OLVERA Organization [facility] Address [address] [place] [address] Care Team Providers Care Order Control Clerk Blood Bank Name Role Phone WEST OLVERA Unavailable PROBLEMS Type Condition ICD9-CM Code WPZ40-PX Code Onset Dates Condition S tatus SNOMED Code Problem Hormone replacement therapy Z79.890 Ac tive 838712873 Problem Mild intermittent asthma without complication J45. 20 Active 443379784 Problem Fatigue R53.83 Active 69468129 Problem Fibromyalgia M79.7 Active 6651688 05 Problem Primary hypertension I10 Active 30890666 Problem Obesity (BMI 30.0-34.9) E66.9 Active 954527494163185 Problem Environmental allergies Z91.09 Active 764724851 Problem Dysthymia F34.1 Active 18079148 Problem Other headache syndrome G44.89 Active 789873495 Problem Weight gain R63.5 Active 8129043 Problem Hypothyroidism, unspecified E03.9 Ac tive 36986232 Problem Migraine NOS/not intrcbl G43.009 Activ e 30705659 Problem Arthralgia, unspecified joint M25.50 Active 34699291 Problem Gastro-esophageal reflux disease without esophagitis K21.9 Active 211618206 Problem Family history of rheumatoid arthritis Z82.61 Active 395860465 Problem Unspecified asthma, uncomplicated J45.909 Active 503221688 ALLERGIES No Information ENCOUNTERS Encounter Location Date Diagnosis [facility] [address] [facility] [id number] [address] [place] [address] Jun, Gastro-esophageal reflux dis ease without esophagitis K21.9 [facility] [address] [facility] [id number] [address] [place] [address] Jun, [facility] [address] [facility] [id number] [address] [place] [address] Jun, [facility] [address] [place] [id number] [address] [place] [address] Jun, [facility] [address] [place] [id number] [place] [address] Jun, [facility] [address] [place] [id number] [address] [place] [address] May, Hypothyroidism, unspecified E03.9 ; Primary hypertension I10 and Arthralgia of multiple joints M25.50 [place] [address] [address] May, [place] [address] [address] May, Mild intermittent asthma wit hout complication J45.20 ; Hormone replacement therapy Z79.890 ; Hypothyroidism, unspecified E03.9 ; Fibromyalgia M79.7 ; Gastro-esophageal reflux disease without esophagitis K21.9 ; Primary hypertension I10 ; Arthralgia of multiple joints M25.50 and Encounter for immunization Z23 [place] [address] [address] May, [place] [address] [address] May, [place] [address] [place] [id number] [place] [address] May, Sore throat J02.9 [place] [address] [place] [id number] [address] [place] [address] Apr, Encounter for immunization Z 23 [place] [address] [place] [id number] [address] [place] [address] Apr, Dysuria R30.0 and Hypothyroi dism, unspecified E03.9 [place] [address] [place] [id number] [address] [place] [address] Jul, [place] [address] [place] [id number] [place] [address] Jul, Hypothyroidism, unspecified E03.9 [facility] [address] [address] Oct, [place] [address] [address] Oct, [place] [address] [address] Sep, Arthralgia, unspecified join t M25.50 [place] [address] [address] Sep, Arthralgia, unspecified join t M25.50 [place] [address] [address] Sep, Arthralgia, unspecified join t M25.50 [place] [address] [address] Sep, [place] [address] [address] Aug, Obesity (BMI 30.0-34.9) E66. 9 ; Dysthymia F34.1 and Arthralgia, unspecified joint M25.50 [place] [address] [address] Aug, Obesity (BMI 30.0-34.9) E66. 9 [place] [address] [address] Aug, [place] [address] [address] Jul, [place] [address] [address] Jul, Obesity (BMI 30.0-34.9) E66. 9 [place] [address] [address] Jul, Obesity (BMI 30.0-34.9) E66. 9 and Family history of diabetes mellitus Z83.3 [place] [address] [address] Jul, Obesity (BMI 30.0-34.9) E66. 9 ; Family history of diabetes mellitus Z83.3 and Other headache syndrome G44.89 [place] [address] [address] Jun, Hypothyroidism, unspecified E03.9 [place] [address] [address] Jun, [place] [address] [address] May, Hypothyroidism, unspecified E03.9 [place] [address] [address] Apr, Vaginal yeast infection B37. 3 [facility] [place] [address] [address] Apr, Acute non-recurrent maxillar y sinusitis J01.00 [place] [address] [address] Jan, Migraine NOS/not intrcbl G43 .009 and Hypothyroidism, unspecified E03.9 [place] [address] [address] December, Hypothyroidism, unspecified E03.9 [facility] [place] [address] [address] December, Maxillary sinusitis, unspeci fied chronicity J32.0 ; Cough R05 ; Mild intermittent asthma without complication J45.20 and Environmental allergies Z91.09 [place] [address] [address] Nov, Hypothyroidism, unspecified E03.9 [place] [address] [address] Nov, Fatigue R53.83 ; Migraine NO S/not intrcbl G43.009 ; Gastro- esophageal reflux disease without esophagitis K21.9 ; Hypothyroidism, unspecified E03.9 and Hormone replacement therapy Z79.890 [place] [address] [address] Jun, Headache, unspecified headac he type R51 and Encounter for immunization Z23 [place] [address] [address] May, URI (upper respiratory infec tion) J06.9 and Unspecified asthma, uncomplicated J45.909 [place] [address] [address] May, [place] [address] [address] May, Migraine NOS/not intrcbl G43 .009 [place] [address] [address] Apr, [place] [address] [address] Mar, Hypothyroid 244.9 and Migrai ne 346.90 [place] [address] [address] Mar, [place] [address] [address] Mar, Fatigue 780.79 [place] [address] [address] Feb, Hormone replacement therapy V07.4 [place] [address] [address] Feb, Vertigo 780.4 [place] [address] [address] Jan, Hormone replacement therapy V07.4 [facility] [address] [facility] [id number] [address] [place] [address] Jan, [facility] [address] [facility] [id number] [address] [place] [address] Jan, [facility] [address] [facility] [id number] [address] [place] [address] December, Fatigue 780.79 ; Weight gain 783.1 ; Hormone replacement therapy V07.4 and GERD (gastroesophageal reflux disease) 530.81 [facility] [address] [facility] [id number] [address] [place] [address] December, Fatigue 780.79 ; Weight gain 783.1 ; Hormone replacement therapy V07.4 and GERD (gastroesophageal reflux disease) 530.81 [facility] [address] [facility] [id number] [address] [place] [address] December, IMMUNIZATIONS No Known Immunizations SOCIAL HISTORY Never Assessed REASON FOR VISIT New Refill Request PLAN OF CARE VITAL SIGNS MEDICATIONS Medication Instructions Dosage Frequency Start Date End Date Duration S tatus Omeprazole 40 mg Orally twice a day TAKE ONE CAPSULE BY MOUTH DAILY 12h 30 Active RESULTS No Results PROCEDURES No [...]
--- OUTSIDE RECORDS SUMMARY | 2019-08-12 00:59 | XMS REPORT ---
Author Author Sue LINTON [facility] eClinicalWorks Address Unknown Phone Unavailable Care Team Providers Care Sap Business Objects Developer Name Role Phone AIDEN LINTON Unavailable Allergies, Adverse Reactions, Alerts Substance Reaction Event Type N.K.D.A. Info Not Available Non Drug Allergy Problems Problem Type Condition Code Onset Dates Condition Statu s Problem Migraine NOS/not intrcbl G43.009 Act remy Problem Gastro-esophageal reflux disease without esophagitis K 21.9 Active Problem Hypothyroidism, unspecified E03.9 Active Assessment Unspecified asthma, uncomplicated J45.909 Active Problem Unspecified asthma, uncomplicated J45.909 Active Assessment URI (upper respiratory infection) J06.9 Active Medications Medication Code System Code Instructions Start Date End Date Status Dosage Imitrex [facility] [address]-64 100 MG Orally Once a day pr n May repeat in 2 hours Apr 04, 2015 0.5 - 1 tablet as ne eded one time Estradiol [facility] [address]-06 2 MG Orally Once a day 1 tablet Omeprazole [facility] [address]-43 40 MG Orally Once a day 1 capsule Verapamil HCl CR [facility] [address]-91 120 MG Orally Once a day March 02, 2015 1 tablet in the morning with food PredniSONE [facility] [address]-40 20 MG Orally Once a day May 26 5 May 31, 2015 2 Effexor XR [facility] [address]-68 37.5 MG Orally Once a day May 18, 2015 1 capsule with food ProAir HFA [facility] [address]-44 108 (90 Base) MCG/ACT Inhalation every 4 hrs 2 puffs as needed Zyrtec Allergy [facility] [address]-42 10 MG Orally Once a day 1 tablet as needed Levothyroxine Sodium [facility] 08521190141 25 Orally Once a day 1 tablet Procedures Procedure Coding System Code Date Office Visit, Est Pt., Level 2 CPT-[address] 2014 Vital Signs Date/Time: May 26, 2015 Temperature 98.0 F Weight 191.3 lbs Height 62 in BMI 34.99 Index Blood Pressure Diastolic 88 mmHg Blood Pressure Systolic 146 mmHg Cardiac Monitoring Heart Rate 80 bpm Results No Known Results Summary Purpose eClinicalWorks Submission
--- OUTSIDE RECORDS SUMMARY | 2019-08-12 00:59 | XMS REPORT ---
Author Author Sandra HANEY Organization [facility] Address [address] [place] [address] Care Team Providers Care Head Sawyer Name Role Phone CAROLYN HANEY Unavailable PROBLEMS Type Condition ICD9-CM Code [id number] Code Onset Dates Condition S tatus SNOMED Code Problem Unspecified asthma, uncomplicated J45.909 Active 600109749 Problem Hormone replacement therapy Z79.890 Ac tive 965871766 Problem Hypothyroidism, unspecified E03.9 Ac tive 28799538 Problem Dysthymia F34.1 Active 23519112 Problem Other headache syndrome G44.89 Active 528576193 Problem Mild intermittent asthma without complication J45. 20 Active 998314702 Problem Fatigue R53.83 Active 29389590 Problem Obesity (BMI 30.0-34.9) E66.9 Active 716047237811849 Problem Environmental allergies Z91.09 Active 782220288 Problem Arthralgia, unspecified joint M25.50 Active 38217370 Problem Family history of rheumatoid arthritis Z82.61 Active 519379534 Problem Migraine NOS/not intrcbl G43.009 Activ e 14116670 Problem Weight gain R63.5 Active 8311486 Problem Gastro-esophageal reflux disease without esophagitis K21.9 Active 357880762 ALLERGIES No Information ENCOUNTERS Encounter Location Date Diagnosis [facility] [address] [facility] [id number] [address] [place] [address] May, [facility] [address] [facility] [id number] [address] [place] [address] May, [place] [address] [facility] [id number] [address] [place] [address] May, Sore throat J02.9 [place] [address] [facility] [id number] [address] [place] [address] Apr, Encounter for immunization Z 23 [place] [address] [address] Apr, Dysuria R30.0 and Hypothyroi dism, unspecified E03.9 [place] [address] [address] Jul, [place] [address] [address] Jul, Hypothyroidism, unspecified E03.9 [place] [address] [address] Oct, [place] [address] [address] Oct, [place] [address] [address] Sep, Arthralgia, unspecified join t M25.50 [place] [address] [address] Sep, Arthralgia, unspecified join t M25.50 [place] [address] [address] Sep, Arthralgia, unspecified join t M25.50 [place] [address] [address] Sep, [place] [address] [address] Aug, Obesity (BMI 30.0-34.9) E66. 9 ; Dysthymia F34.1 and Arthralgia, unspecified joint M25.50 [place] [address] [address] Aug, Obesity (BMI 30.0-34.9) E66. 9 [place] [address] [address] Aug, [facility] [address] [address] Jul, [facility] [address] [address] Jul, Obesity (BMI 30.0-34.9) E66. 9 [place] [address] [address] Jul, Obesity (BMI 30.0-34.9) E66. 9 and Family history of diabetes mellitus Z83.3 [place] [address] [address] Jul, Obesity (BMI 30.0-34.9) E66. 9 ; Family history of diabetes mellitus Z83.3 and Other headache syndrome G44.89 [place] [address] [address] Jun, Hypothyroidism, unspecified E03.9 [place] [address] [address] Jun, [place] [address] [address] May, Hypothyroidism, unspecified E03.9 [facility] [address] [address] Apr, Vaginal yeast infection B37. 3 [facility] [address] [address] 02 Apr, 2016 Acute non-recurrent maxillar y sinusitis J01.00 [place] [address] [address] 13 Jan, 2016 Migraine NOS/not intrcbl G43 .009 and Hypothyroidism, unspecified E03.9 [facility] [address] [address] December, Hypothyroidism, unspecified E03.9 [facility] [address] [address] December, Maxillary sinusitis, unspeci fied chronicity J32.0 ; Cough R05 ; Mild intermittent asthma without complication J45.20 and Environmental allergies Z91.09 [facility] [address] [address] Nov, Hypothyroidism, unspecified E03.9 [facility] [address] [address] Nov, Fatigue R53.83 ; Migraine NO S/not intrcbl G43.009 ; Gastro- esophageal reflux disease without esophagitis K21.9 ; Hypothyroidism, unspecified E03.9 and Hormone replacement therapy Z79.890 [place] [address] [address] Jun, Headache, unspecified headac he type R51 and Encounter for immunization Z23 [place] [address] [address] May, URI (upper respiratory infec tion) J06.9 and Unspecified asthma, uncomplicated J45.909 [place] [address] [address] May, [facility] [address] [address] May, Migraine NOS/not intrcbl G43 .009 [place] [address] [address] Apr, [place] [address] [address] Mar, Hypothyroid 244.9 and Migrai ne 346.90 [place] [address] [address] Mar, [place] [address] [address] Mar, Fatigue 780.79 [facility] [address] [facility] [id number] [address] [place] [address] Feb, Hormone replacement therapy V07.4 [facility] [address] [facility] [id number] [address] [place] [address] Feb, Vertigo 780.4 [facility] [address] [facility] [id number] [address] [place] [address] Jan, Hormone replacement therapy V07.4 [facility] [address] [facility] [id number] [address] [place] [address] Jan, [place] [address] [facility] [id number] [place] [address] Jan, [place] [address] [place] [id number] [address] [place] [address] December, Fatigue 780.79 ; Weight gain 783.1 ; Hormone replacement therapy V07.4 and GERD (gastroesophageal reflux disease) 530.81 [facility] [address] [place] [id number] [address] [place] [address] December, Fatigue 780.79 ; Weight gain 783.1 ; Hormone replacement therapy V07.4 and GERD (gastroesophageal reflux disease) 530.81 [place] [address] [place] [id number] [address] [place] [address] December, IMMUNIZATIONS Vaccine Route Administration Date Status FLULAVAL QUAD 0.5ML (6 MO & UP) 2018 IM Intramuscular May 11 018 Administered SOCIAL HISTORY Never Assessed REASON FOR VISIT Flu shot PLAN OF CARE VITAL SIGNS MEDICATIONS Unknown Medications RESULTS No Results PROCEDURES Procedure Date Ordered Result Body Site FLULAVAL QUAD 0.5ML (6 MO AND UP) 2018 May 11, 2018 SINGLE IMMUNIZATION ADMIN May 11, 2018 INSTRUCTIONS MEDICATIONS ADMINISTERED No Known Medications [...]
--- OUTSIDE RECORDS SUMMARY | 2019-08-12 00:59 | XMS REPORT ---
Author Author Sandra HANEY Organization [facility] Address [address] [place] [address] Care Team Providers Care [employer] Teacher Name Role Phone CAROLYN HANEY Unavailable PROBLEMS Type Condition ICD9-CM Code [id number] Code Onset Dates Condition S tatus SNOMED Code Problem Unspecified asthma, uncomplicated J45.909 Active 955155484 Problem Hormone replacement therapy Z79.890 Ac tive 667010926 Problem Hypothyroidism, unspecified E03.9 Ac tive 65750979 Problem Dysthymia F34.1 Active 20063252 Problem Other headache syndrome G44.89 Active 831934244 Problem Mild intermittent asthma without complication J45. 20 Active 912657291 Problem Fatigue R53.83 Active 41074738 Problem Obesity (BMI 30.0-34.9) E66.9 Active 797597018656466 Problem Environmental allergies Z91.09 Active 154230378 Problem Arthralgia, unspecified joint M25.50 Active 73795697 Problem Family history of rheumatoid arthritis Z82.61 Active 433668195 Problem Migraine NOS/not intrcbl G43.009 Activ e 33658111 Problem Weight gain R63.5 Active 1511933 Problem Gastro-esophageal reflux disease without esophagitis K21.9 Active 430789150 ALLERGIES Unknown Allergies SOCIAL HISTORY No smoking Hx information available PLAN OF CARE VITAL SIGNS MEDICATIONS Unknown Medications RESULTS No Results PROCEDURES No Known procedures IMMUNIZATIONS No Known Immunizations
--- OUTSIDE RECORDS SUMMARY | 2019-08-12 00:59 | XMS REPORT ---
Author Author Sandra HANEY [facility] Address [address] [place] [address] Care Team Providers Care Community Organization Aide Name Role Phone CAROLYN HANEY Unavailable PROBLEMS Type Condition ICD9-CM Code [id number]-WA Code Onset Dates Condition S tatus SNOMED Code Problem Unspecified asthma, uncomplicated J45.909 Active 076642327 Problem Hormone replacement therapy Z79.890 Ac tive 460949724 Problem Hypothyroidism, unspecified E03.9 Ac tive 56162107 Problem Dysthymia F34.1 Active 90718344 Problem Other headache syndrome G44.89 Active 948365517 Problem Mild intermittent asthma without complication J45. 20 Active 426509233 Problem Fatigue R53.83 Active 40981682 Problem Obesity (BMI 30.0-34.9) E66.9 Active 747090240488447 Problem Environmental allergies Z91.09 Active 255158388 Problem Arthralgia, unspecified joint M25.50 Active 12931397 Problem Family history of rheumatoid arthritis Z82.61 Active 524432193 Problem Migraine NOS/not intrcbl G43.009 Activ e 86220916 Problem Weight gain R63.5 Active 2745695 Problem Gastro-esophageal reflux disease without esophagitis K21.9 Active 725628916 ALLERGIES Substance Reaction Event Type Date Status N.K.D.A. Unknown Non Drug Allergy Aug, Unknown SOCIAL HISTORY No smoking Hx information available PLAN OF CARE Activity Details Follow Up 4 Weeks Reason:dysthymia VITAL SIGNS Height 62 in 2016-09-11 Weight 187.2 lbs 2016-09-11 Temperature 98.2 degrees Fahrenheit 2016-09-11 Heart Rate 76 bpm 2016-09-11 Respiratory Rate 18 2016-09-11 BMI 34.24 kg/m2 2016-09-11 Blood pressure systolic 132 mmHg 2016-09-11 Blood pressure diastolic 90 mmHg 2016-09-11 MEDICATIONS Medication Instructions Dosage Frequency Start Date End Date Duration S tatus Fluoxetine HCl 20 mg Orally Once a day 1 capsule in the morning 24h Aug, 30 day(s) Active Imitrex 100 MG Orally Once a day prn May repeat in 2 h ours 0.5 - 1 tablet as needed one time Mar, 1 day(s) Active Terra Allergy 60 mg Orally Once a day 1 tablet as needed 24h Active Levothyroxine Sodium 50 MCG Orally Once a day 1 tablet 24h 27 A , 2015 30 day(s) Active Effexor XR 37.5 TAKE ONE CAPSULE BY MOUTH DAILY WITH FOOD 30 Active Estradiol 1 MG Orally Once a day 2.5 tabs 24h 30 Active Omeprazole 40 TAKE ONE CAPSULE BY MOUTH DAILY 30 Active ProAir HFA 108 (90 Base) MCG/ACT Inhalation every 4 hrs 2 puffs as needed 4h Apr, 30 days Active RESULTS No Results PROCEDURES Procedure Date Ordered Related Diagnosis Body Site Office Visit, Est Pt., Level 3 Sep 11, 2016 IMMUNIZATIONS No Known Immunizations
--- OUTSIDE RECORDS SUMMARY | 2019-08-12 01:00 | XMS REPORT ---
Author Author Sue HANEY [facility] eClinicalWorks Address Unknown Phone Unavailable Care Team Providers Care Senior Business Analyst Name Role Phone CAROLYN HANEY Unavailable Allergies, Adverse Reactions, Alerts Substance Reaction Event Type N.K.D.A. Info Not Available Non Drug Allergy Problems Problem Type Condition Code Onset Dates Condition Statu s Problem Migraine NOS/not intrcbl G43.009 Act remy Problem Gastro-esophageal reflux disease without esophagitis K 21.9 Active Problem Hypothyroidism, unspecified E03.9 Active Problem Unspecified asthma, uncomplicated J45.909 Active Assessment Migraine NOS/not intrcbl G43.009 Act remy Medications Medication Code System Code Instructions Start Date End Date Status Dosage Omeprazole [facility] [address]-30 40 MG Orally Once a day 1 capsule Claritin [facility] [address]-45 10 MG Orally Once a day 1 tablet Effexor XR [facility] [address]-08 37.5 MG Orally Once a day May 18, 2015 1 capsule with food Levothyroxine Sodium [facility] 09738067207 25 Orally Once a day 1 tablet Estradiol [facility] [address]-31 2 MG Orally Once a day 1 tablet Verapamil HCl CR [facility] [address]-80 120 MG Orally Once a day March 02, 2015 1 tablet in the morning with food ProAir HFA [facility] [address]-66 108 (90 Base) MCG/ACT Inhalation every 4 hrs 2 puffs as needed Imitrex [facility] [address]-69 100 MG Orally Once a day pr n May repeat in 2 hours Apr 04, 2015 0.5 - 1 tablet as ne eded one time Procedures Procedure Coding System Code Date Office Visit, Est Pt., Level 3 CPT-[address] 2014 Vital Signs Date/Time: May 18, 2015 Temperature 98.1 F Weight 189.4 lbs Height 62 in BMI 34.64 Index Blood Pressure Diastolic 70 mmHg Blood Pressure Systolic 122 mmHg Cardiac Monitoring Heart Rate 78 bpm Results No Known Results Summary Purpose eClinicalWorks Submission
--- OUTSIDE RECORDS SUMMARY | 2019-08-12 01:00 | XMS REPORT ---
Author Author Sandra HANEY [facility] Address [address] [place] [address] Care Team Providers Care Blanket Inspector Name Role Phone CAROLYN HANEY Unavailable PROBLEMS Type Condition ICD9-CM Code [id number] Code Onset Dates Condition S tatus SNOMED Code Problem Unspecified asthma, uncomplicated J45.909 Active 452361205 Problem Hormone replacement therapy Z79.890 Ac tive 746511957 Problem Hypothyroidism, unspecified E03.9 Ac tive 15678761 Problem Dysthymia F34.1 Active 11312827 Problem Other headache syndrome G44.89 Active 007735419 Problem Mild intermittent asthma without complication J45. 20 Active 244819108 Problem Fatigue R53.83 Active 16165924 Problem Obesity (BMI 30.0-34.9) E66.9 Active 712714334660730 Problem Environmental allergies Z91.09 Active 402437742 Problem Arthralgia, unspecified joint M25.50 Active 93927140 Problem Family history of rheumatoid arthritis Z82.61 Active 975611000 Problem Migraine NOS/not intrcbl G43.009 Activ e 89523529 Problem Weight gain R63.5 Active 4335413 Problem Gastro-esophageal reflux disease without esophagitis K21.9 Active 652881953 ALLERGIES No Information SOCIAL HISTORY Never Assessed PLAN OF CARE VITAL SIGNS MEDICATIONS Unknown Medications RESULTS Name Result Date Reference Range RA (RHEUMATOID) FACTOR 2016-10-14 RA Latex Turbid. <10.0 0.0-13.9 ESR/SED RATE (IN HOUSE) 2016-10-14 SED/ESR RATE 47 mm/hr Lot # [id number] Exp Date 09/2016 0 - 20 mm PROCEDURES Procedure Date Ordered Result Body Site RHEUMATOID FACTOR, QUANT Oct 14, 2016 RBC SED RATE, NONAUTOMATED Oct 14, 2016 VENIPUNCT, ROUTINE* Oct 14, 2016 IMMUNIZATIONS No Known Immunizations MEDICAL (GENERAL) HISTORY Type Description Date Medical [...]
--- OUTSIDE RECORDS SUMMARY | 2019-08-12 01:00 | XMS REPORT ---
Author Author Sue HANEY [facility] eClinicalWorks Address Unknown Phone Unavailable Care Team Providers Care Diesel Technician Mechanic Name Role Phone CAROLYN HANEY Unavailable Allergies No Known Allergies Problems No Known Problems Medications Medication Code System Code Instructions Start Date End Date Status Dosage Estradiol [facility] [address]-75 2 MG Orally Once a day 1 tablet Levothyroxine Sodium [facility] 03682968670 25 Orally Once a day 1 tablet Results No Known Results Summary Purpose eClinicalWorks Submission
--- OUTSIDE RECORDS SUMMARY | 2019-08-12 01:00 | XMS REPORT ---
Author Author Sandra HANEY Organization [facility] Address [address] [place] [address] Care Team Providers Care Medical Records Analyst Name Role Phone CAROLYN HANEY Unavailable PROBLEMS Type Condition ICD9-CM Code [id number] Code Onset Dates Condition S tatus SNOMED Code Problem Unspecified asthma, uncomplicated J45.909 Active 850627352 Problem Hormone replacement therapy Z79.890 Ac tive 720518362 Problem Hypothyroidism, unspecified E03.9 Ac tive 82181396 Problem Dysthymia F34.1 Active 24068709 Problem Other headache syndrome G44.89 Active 850706844 Problem Mild intermittent asthma without complication J45. 20 Active 777340938 Problem Fatigue R53.83 Active 32668647 Problem Obesity (BMI 30.0-34.9) E66.9 Active 929402998659198 Problem Environmental allergies Z91.09 Active 369514070 Problem Arthralgia, unspecified joint M25.50 Active 54675434 Problem Family history of rheumatoid arthritis Z82.61 Active 518159645 Problem Migraine NOS/not intrcbl G43.009 Activ e 68048898 Problem Weight gain R63.5 Active 2296619 Problem Gastro-esophageal reflux disease without esophagitis K21.9 Active 278370259 ALLERGIES No Information SOCIAL HISTORY Never Assessed PLAN OF CARE VITAL SIGNS MEDICATIONS Unknown Medications RESULTS No Results PROCEDURES No Known procedures IMMUNIZATIONS No Known Immunizations MEDICAL (GENERAL) HISTORY Type Description Date Medical History seasonal allergies Medical History asthma Medical History gastroesophageal reflux disease (GERD) Medical History migraine headaches Medical History Hypertension Surgical History section x2 Surgical History gallbladder 2011 Surgical History appendectomy 2012 Surgical History Hysterectomy Had only one ov tomas and small fallopian tube. Had total hyst. Dr [place] 2011 Hospitalization History Hospitalization History Hysterectomy/appendectomy Hospitalization History Dehydration
--- OUTSIDE RECORDS SUMMARY | 2019-08-12 01:00 | XMS REPORT ---
Author Author Sandra HANEY [facility] eClinicalWorks Address Unknown Phone Unavailable Care Team Providers Care Layer Off Name Role Phone CAROLYN HANEY CP Unavailable Allergies No Known Allergies Problems Problem Type Condition Code Onset Dates Condition Statu s Problem Unspecified asthma, uncomplicated J45.909 Active Assessment Hypothyroidism, unspecified E03.9 Active Problem Environmental allergies Z91.09 Acti ve Problem Fatigue R53.83 Active Problem Mild intermittent asthma without complication J45.20 Active Problem Migraine NOS/not intrcbl G43.009 Act remy Problem Gastro-esophageal reflux disease without esophagitis K 21.9 Active Problem Hormone replacement therapy Z79.890 Active Problem Hypothyroidism, unspecified E03.9 Active Medications No Known Medications Procedures Procedure Coding System Code Date VENIPUNCT, ROUTINE* CPT-4 44509 Jul 04, 2016 ASSAY THYROID STIM HORMONE CPT-4 93491 Jun 182015 Results Name Result Date Reference Range Unit Abnormali ty Flag TSH ----TSH 2.430 [id number] 0.450-4.500 uIU/mL ROUTINE VENIPUNCTURE Summary Purpose eClinicalWorks Submission
--- OUTSIDE RECORDS SUMMARY | 2019-08-12 01:00 | XMS REPORT ---
Author Author Sandra HANEY [facility] Address [address] [place] [address] Care Team Providers Care Manager Nuclear Name Role Phone CAROLYN HANEY Unavailable PROBLEMS Type Condition ICD9-CM Code [id number]-LS Code Onset Dates Condition S tatus SNOMED Code Problem Unspecified asthma, uncomplicated J45.909 Active 333230717 Problem Hormone replacement therapy Z79.890 Ac tive 886486670 Problem Hypothyroidism, unspecified E03.9 Ac tive 86016558 Problem Dysthymia F34.1 Active 87356586 Problem Other headache syndrome G44.89 Active 025981282 Problem Mild intermittent asthma without complication J45. 20 Active 430819798 Problem Fatigue R53.83 Active 92068058 Problem Obesity (BMI 30.0-34.9) E66.9 Active 441420640257937 Problem Environmental allergies Z91.09 Active 270057527 Problem Arthralgia, unspecified joint M25.50 Active 90544705 Problem Family history of rheumatoid arthritis Z82.61 Active 207239076 Problem Migraine NOS/not intrcbl G43.009 Activ e 61595732 Problem Weight gain R63.5 Active 3671390 Problem Gastro-esophageal reflux disease without esophagitis K21.9 Active 712935070 ALLERGIES No Information SOCIAL HISTORY Never Assessed PLAN OF CARE VITAL SIGNS MEDICATIONS Medication Instructions Dosage Frequency Start Date End Date Duration S tatus PredniSONE 20 mg Orally Once a day 2 tablets 24h Oct, Oct, 05 days Active RESULTS No Results PROCEDURES No [...]
--- OUTSIDE RECORDS SUMMARY | 2019-08-12 01:00 | XMS REPORT ---
Author Author Sue HANEY [facility] eClinicalWorks Address Unknown Phone Unavailable Care Team Providers Care Mds Coordinator Name Role Phone CAROLYN HANEY CP Unavailable Allergies No Known Allergies Problems Problem Type Condition Code Onset Dates Condition Statu s Problem Migraine NOS/not intrcbl G43.009 Act remy Problem Gastro-esophageal reflux disease without esophagitis K 21.9 Active Problem Hypothyroidism, unspecified E03.9 Active Problem Unspecified asthma, uncomplicated J45.909 Active Medications No Known Medications Results No Known Results Summary Purpose eClinicalWorks Submission
--- OUTSIDE RECORDS SUMMARY | 2019-08-12 01:00 | XMS REPORT ---
Author Author Sandra HANEY [facility] eClinicalWorks Address Unknown Phone Unavailable Care Team Providers Care Vb Net Developer Name Role Phone CAROLYN HANEY Unavailable Allergies, Adverse Reactions, Alerts Substance Reaction Event Type N.K.D.A. Info Not Available Non Drug Allergy Problems Problem Type Condition Code Onset Dates Condition Statu s Assessment Hypothyroidism, unspecified E03.9 Active Assessment Migraine NOS/not intrcbl G43.009 Act remy Assessment Gastro-esophageal reflux disease without esophagitis K 21.9 Active Assessment Hormone replacement therapy Z79.890 Active Problem Hormone replacement therapy Z79.890 Active Problem Hypothyroidism, unspecified E03.9 Active Problem Fatigue R53.83 Active Problem Unspecified asthma, uncomplicated J45.909 Active Assessment Fatigue R53.83 Active Problem Migraine NOS/not intrcbl G43.009 Act remy Problem Gastro-esophageal reflux disease without esophagitis K 21.9 Active Medications Medication Code System Code Instructions Start Date End Date Status Dosage Estradiol [facility] [address]-51 1 MG Orally Once a day 2.5 tabs Imitrex [facility] [address]-23 100 MG Orally Once a day pr n May repeat in 2 hours Apr 04, 2015 0.5 - 1 tablet as ne eded one time ProAir HFA [facility] [address]-95 108 (90 Base) MCG/ACT Inhalation every 4 hrs 2 puffs as needed Effexor XR [facility] 26851196332 37.5 TAKE ONE CAPSULE BY MOUTH DAILY WITH FOOD Levothyroxine Sodium [facility] 29718981418 25 Orally Once a day 1 tablet Zyrtec Allergy [facility] [address]-05 10 MG Orally Once a day 1 tablet as needed Omeprazole [facility] [address]-98 20 MG Orally 2 times a day 1 tablet Procedures Procedure Coding System Code Date ASSAY OF FREE THYROXINE CPT-4 56797 November VENANTHONY, ROUTINE* CPT-4 01042 December 04 16 ASSAY THYROID STIM HORMONE CPT-4 47998 December 05, 2015 Office Visit, Est Pt., Level 3 CPT-4 29901 A pri 2015 Vital Signs Date/Time: December 05, 2015 Temperature 98.1 F Weight 192.9 lbs Height 62 in BMI 35.28 Index Blood Pressure Diastolic 76 mmHg Blood Pressure Systolic 120 mmHg Cardiac Monitoring Heart Rate 76 bpm Results No Known Results Summary Purpose eClinicalWorks Submission
--- OUTSIDE RECORDS SUMMARY | 2019-08-12 01:00 | XMS REPORT ---
Author Author Sue HANEY Organization eClinicalWorks Address Unknown Phone Unavailable Care Team Providers Care Pasteuriser Operator Name Role Phone CAROLYN HANEY CP Unavailable Allergies, Adverse Reactions, Alerts Substance Reaction Event Type N.K.D.A. Info Not Available Non Drug Allergy Problems Problem Type Condition ICD-9 Code Onset Dates Condition Statu s Assessment Migraine 346.90 Active Assessment Hypothyroid 244.9 Active Medications Medication Code System Code Instructions Start Date End Date Status Dosage Effexor NDC 0 75 mg oral Once a day 1 tab ProAir HFA [facility] [address]-59 108 (90 Base) MCG/ACT Inhalation every 4 hrs 2 puffs as needed Levothyroxine Sodium [facility] 56245677536 25 Orally Once a day 1 tablet Omeprazole [facility] [address]-92 40 MG Orally Once a day 1 capsule Claritin [facility] [address]-30 10 MG Orally Once a day 1 tablet Verapamil HCl CR [facility] [address]-29 120 MG Orally Once a day March 02, 2015 1 tablet in the morning with food Estradiol [facility] [address]-60 2 MG Orally Once a day 1 tablet Imitrex [facility] [address]-59 100 MG Orally Once a day pr n May repeat in 2 hours Apr 04, 2015 0.5 - 1 tablet as ne eded one time Procedures Procedure Coding System Code Date Office Visit, Est Pt., Level 3 CPT-4 63965 A 2014 Vital Signs Date/Time: Apr 04, 2015 Temperature 98.0 F Weight 187 lbs Height 62 in BMI 34.20 Index Blood Pressure Diastolic 68 mmHg Blood Pressure Systolic 138 mmHg Cardiac Monitoring Heart Rate 70 bpm Results No Known Results Summary Purpose eClinicalWorks Submission
--- OUTSIDE RECORDS SUMMARY | 2019-08-12 01:00 | XMS REPORT ---
Author Author Sandra HANEY Organization [facility] Address [address] [place] [address] Care Team Providers Care Turf Grower Name Role Phone CAROLNY HANEY Unavailable PROBLEMS Type Condition ICD9-CM Code VWS48-HB Code Onset Dates Condition S tatus SNOMED Code Problem Unspecified asthma, uncomplicated J45.909 Active 094804441 Problem Hormone replacement therapy Z79.890 Ac tive 052150616 Problem Hypothyroidism, unspecified E03.9 Ac tive 16042057 Problem Dysthymia F34.1 Active 85421197 Problem Other headache syndrome G44.89 Active 321815938 Problem Mild intermittent asthma without complication J45. 20 Active 175240743 Problem Fatigue R53.83 Active 45235988 Problem Obesity (BMI 30.0-34.9) E66.9 Active 315274597482746 Problem Environmental allergies Z91.09 Active 070512202 Problem Arthralgia, unspecified joint M25.50 Active 37488127 Problem Family history of rheumatoid arthritis Z82.61 Active 984059214 Problem Migraine NOS/not intrcbl G43.009 Activ e 13275148 Problem Weight gain R63.5 Active 3933672 Problem Gastro-esophageal reflux disease without esophagitis K21.9 Active 707811258 ALLERGIES No Information SOCIAL HISTORY Never Assessed [...]
--- OUTSIDE RECORDS SUMMARY | 2019-08-12 01:00 | XMS REPORT ---
Author Author Sandra HANEY Organization [facility] Address [address] [place] [address] Care Team Providers Care Pan Pusher Name Role Phone CAROLYN HANEY Unavailable PROBLEMS Type Condition ICD9-CM Code GHN45-NR Code Onset Dates Condition S tatus SNOMED Code Problem Unspecified asthma, uncomplicated J45.909 Active 367584869 Problem Hormone replacement therapy Z79.890 Ac tive 389010035 Problem Hypothyroidism, unspecified E03.9 Ac tive 30900015 Problem Dysthymia F34.1 Active 94256895 Problem Other headache syndrome G44.89 Active 379146756 Problem Mild intermittent asthma without complication J45. 20 Active 299072251 Problem Fatigue R53.83 Active 96347571 Problem Obesity (BMI 30.0-34.9) E66.9 Active 547312503849484 Problem Environmental allergies Z91.09 Active 422364680 Problem Arthralgia, unspecified joint M25.50 Active 46801910 Problem Family history of rheumatoid arthritis Z82.61 Active 198962310 Problem Migraine NOS/not intrcbl G43.009 Activ e 58287109 Problem Weight gain R63.5 Active 5637805 Problem Gastro-esophageal reflux disease without esophagitis K21.9 Active 072449424 ALLERGIES Unknown Allergies SOCIAL HISTORY No smoking Hx information available PLAN OF CARE VITAL SIGNS MEDICATIONS Unknown Medications RESULTS No Results PROCEDURES No Known procedures IMMUNIZATIONS No Known Immunizations
--- OUTSIDE RECORDS SUMMARY | 2019-08-12 01:00 | XMS REPORT ---
Author Author Sandra HANEY Organization [facility] Address [address] [place] [address] Care Team Providers Care Eeg Tech Name Role Phone CAROLYN HANEY Unavailable PROBLEMS Type Condition ICD9-CM Code KMC72-AW Code Onset Dates Condition S tatus SNOMED Code Problem Migraine NOS/not intrcbl G43.009 Activ e 53543794 Problem Hormone replacement therapy Z79.890 Ac tive 087025487 Problem Hypothyroidism, unspecified E03.9 Ac tive 04069072 Problem Dysthymia F34.1 Active 28983350 Problem Obesity (BMI 30.0-34.9) E66.9 Active 401360706755883 Problem Environmental allergies Z91.09 Active 482937454 Problem Fatigue R53.83 Active 78813479 Problem Other headache syndrome G44.89 Active 736149645 Problem Mild intermittent asthma without complication J45. 20 Active 659092970 Problem Family history of rheumatoid arthritis Z82.61 Active 860350782 Problem Arthralgia, unspecified joint M25.50 Active 62430932 Problem Unspecified asthma, uncomplicated J45.909 Active 831031213 Problem Weight gain R63.5 Active 3943685 Problem Gastro-esophageal reflux disease without esophagitis K21.9 Active 129200709 ALLERGIES Unknown Allergies SOCIAL HISTORY No smoking Hx information available PLAN OF CARE VITAL SIGNS MEDICATIONS Unknown Medications RESULTS Name Result Date Reference Range A1C (IN HOUSE) 2016-08-07 A1C IN HOUSE 5.7 4.3 - 5.6 % Previous A1c 5.5 Lot [id number] Exp date INSULIN LEVEL 2016-08-07 Insulin 13.0 2.6-24.9 PROCEDURES Procedure Date Ordered Related Diagnosis Body Site ASSAY OF INSULIN Aug 07, 2016 GLYCATED HEMOGLOBIN TEST Aug 07, 2016 VENIPUNCT, ROUTINE* Aug 07, 2016 IMMUNIZATIONS No Known Immunizations
--- OUTSIDE RECORDS SUMMARY | 2019-08-12 01:00 | XMS REPORT ---
Author Author Sandra HANEY Organization [facility] Address [address] [place] [address] Care Team Providers Care Control Manager Name Role Phone CAROLYN HANEY Unavailable PROBLEMS Type Condition ICD9-CM Code PRH23-LY Code Onset Dates Condition S tatus SNOMED Code Problem Unspecified asthma, uncomplicated J45.909 Active 066496426 Problem Hormone replacement therapy Z79.890 Ac tive 554645775 Problem Hypothyroidism, unspecified E03.9 Ac tive 93866800 Problem Dysthymia F34.1 Active 25038614 Problem Other headache syndrome G44.89 Active 085736966 Problem Mild intermittent asthma without complication J45. 20 Active 029609872 Problem Fatigue R53.83 Active 37606817 Problem Obesity (BMI 30.0-34.9) E66.9 Active 689320517383966 Problem Environmental allergies Z91.09 Active 081865415 Problem Arthralgia, unspecified joint M25.50 Active 10324415 Problem Family history of rheumatoid arthritis Z82.61 Active 878422328 Problem Migraine NOS/not intrcbl G43.009 Activ e 27044349 Problem Weight gain R63.5 Active 4248610 Problem Gastro-esophageal reflux disease without esophagitis K21.9 Active 777492480 ALLERGIES Unknown Allergies SOCIAL HISTORY No smoking Hx information available PLAN OF CARE VITAL SIGNS MEDICATIONS Unknown Medications RESULTS No Results PROCEDURES No Known procedures IMMUNIZATIONS No Known Immunizations
--- OUTSIDE RECORDS SUMMARY | 2019-08-12 01:00 | XMS REPORT ---
Author Author Sandra HANEY Organization [facility] Address [address] [place] [address] Care Team Providers Care Underwriting Consultant Name Role Phone CAROLYN HANEY Unavailable PROBLEMS Type Condition ICD9-CM Code FAL26-VH Code Onset Dates Condition S tatus SNOMED Code Problem Unspecified asthma, uncomplicated J45.909 Active 447389190 Problem Hormone replacement therapy Z79.890 Ac tive 868607975 Problem Hypothyroidism, unspecified E03.9 Ac tive 13364032 Problem Dysthymia F34.1 Active 79965459 Problem Other headache syndrome G44.89 Active 528735084 Problem Mild intermittent asthma without complication J45. 20 Active 614322930 Problem Fatigue R53.83 Active 14122901 Problem Obesity (BMI 30.0-34.9) E66.9 Active [id number] Problem Environmental allergies Z91.09 Active 338078933 Problem Arthralgia, unspecified joint M25.50 Active 10889548 Problem Family history of rheumatoid arthritis Z82.61 Active 226432277 Problem Migraine NOS/not intrcbl G43.009 Activ e 80916415 Problem Weight gain R63.5 Active 2503540 Problem Gastro-esophageal reflux disease without esophagitis K21.9 Active 157198515 ALLERGIES No Information ENCOUNTERS Encounter Location Date Diagnosis [facility] [address] [facility] [id number] [address] [place] [phone] Jul, [facility] [address] [facility] [id number] [address] [place] [address] Jul, Hypothyroidism, unspecified E03.9 [facility] [address] [facility] [id number] [address] [place] [address] Oct, [facility] [address] [facility] [id number] [address] [place] [address] Oct, [facility] [address] [place] [id number] [address] [place] [address] Sep, Arthralgia, unspecified join t M25.50 [facility] [address] [facility] [id number] [address] [place] [address] Sep, Arthralgia, unspecified join t M25.50 [place] [address] [address] Sep, Arthralgia, unspecified join t M25.50 [place] [address] [address] Sep, [place] [address] [address] Aug, Obesity (BMI 30.0-34.9) E66. 9 ; Dysthymia F34.1 and Arthralgia, unspecified joint M25.50 [place] [address] [address] Aug, Obesity (BMI 30.0-34.9) E66. 9 [place] [address] [address] Aug, [place] [address] [address] Jul, [place] [address] [address] Jul, Obesity (BMI 30.0-34.9) E66. 9 [place] [address] [address] Jul, Family history of diabetes m ellitus Z83.3 and Obesity (BMI 30.0- 34.9) E66.9 [place] [address] [address] Jul, Obesity (BMI 30.0-34.9) E66. 9 ; Family history of diabetes mellitus Z83.3 and Other headache syndrome G44.89 [place] [address] [address] Jun, Hypothyroidism, unspecified E03.9 [place] [address] [address] Jun, [place] [address] [address] May, Hypothyroidism, unspecified E03.9 [place] [address] [address] Apr, Vaginal yeast infection B37. 3 [facility] [place] [address] [address] 02 Apr, 2016 Acute non-recurrent maxillar y sinusitis J01.00 [place] [address] [address] Jan, Migraine NOS/not intrcbl G43 .009 and Hypothyroidism, unspecified E03.9 [place] [address] [address] December, Hypothyroidism, unspecified E03.9 [facility] [place] [address] [address] December, Maxillary sinusitis, unspeci fied chronicity J32.0 ; Cough R05 ; Mild intermittent asthma without complication J45.20 and Environmental allergies Z91.09 [place] [address] [address] Nov, Hypothyroidism, unspecified E03.9 [place] [address] [address] Nov, Fatigue R53.83 ; Migraine NO S/not intrcbl G43.009 ; Gastro- esophageal reflux disease without esophagitis K21.9 ; Hypothyroidism, unspecified E03.9 and Hormone replacement therapy Z79.890 [place] [address] [address] Jun, Headache, unspecified headac he type R51 and Encounter for immunization Z23 [place] [address] [address] May, URI (upper respiratory infec tion) J06.9 and Unspecified asthma, uncomplicated J45.909 [place] [address] [address] May, [place] [address] [address] May, Migraine NOS/not intrcbl G43 .009 [place] [address] [address] Apr, [place] [address] [address] Mar, Hypothyroid 244.9 and Migrai ne 346.90 [place] [address] [address] Mar, [place] [address] [address] Mar, Fatigue 780.79 [place] [address] [address] Feb, Hormone replacement therapy V07.4 [place] [address] [address] Feb, Vertigo 780.4 [place] [address] [address] Jan, Hormone replacement therapy V07.4 [place] [address] [address] Jan, [place] [address] [address] Jan, [facility] [address] [facility] [id number] [address] [place] [address] December, Fatigue 780.79 ; Weight gain 783.1 ; Hormone replacement therapy V07.4 and GERD (gastroesophageal reflux disease) 530.81 [facility] [address] [facility] [id number] [address] [place] [address] December, Fatigue 780.79 ; Weight gain 783.1 ; Hormone replacement therapy V07.4 and GERD (gastroesophageal reflux disease) 530.81 [facility] [address] [facility] [id number] [address] [place] [address] December, IMMUNIZATIONS No Known Immunizations SOCIAL HISTORY Never Assessed REASON FOR VISIT Refill Request/Pt transfered care PLAN OF CARE VITAL SIGNS MEDICATIONS Unknown [...]
--- OUTSIDE RECORDS SUMMARY | 2019-08-12 01:00 | XMS REPORT ---
Author Author Sandra HANEY Organization [employer] Address Unknown Phone Unavailable Care Team Providers Care Diamond Die Polisher Name Role Phone CAROLYN HANEY CP Unavailable Allergies No Known Allergies Problems Problem Type Condition Code Onset Dates Condition Statu s Problem Unspecified asthma, uncomplicated J45.909 Active Problem Environmental allergies Z91.09 Acti ve Problem Fatigue R53.83 Active Problem Mild intermittent asthma without complication J45.20 Active Problem Migraine NOS/not intrcbl G43.009 Act remy Problem Gastro-esophageal reflux disease without esophagitis K 21.9 Active Problem Hormone replacement therapy Z79.890 Active Problem Hypothyroidism, unspecified E03.9 Active Medications No Known Medications Results No Known Results Summary Purpose [employer] Submission
--- OUTSIDE RECORDS SUMMARY | 2019-08-12 01:00 | XMS REPORT | Continuity of Care Document ---
Author Organization Unknown Address Unknown Phone Unavailable Allergies Active Description Code Type Severity Reaction Onset Reported/Identified Relationship to Patient Clinical Status Yes NKANo Known Allergies NKA Miscellaneous Allergy Unknown N/A 05/04/2006 Medications There is no data. 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 04/11/2012 Ot 617.1 OVAR NISSA ENDOMETRIOSIS 04/11/2012 Ot 617.2 TUBA L ENDOMETRIOSIS 04/11/2012 Ot 617.5 INTE STINAL ENDOMETRIOSIS 04/11/2012 Ot 621.2 HYPE RTROPHY OF UTERUS 04/11/2012 Ot 625.9 FEM GENITAL SYMPTOMS NOS 04/11/2012 Ot 626.2 EXCE SSIVE MENSTRUATION 04/11/2012 Ot 752.0 ANOM ALIES OF OVARIES 04/11/2012 Ot 752.39 OTH ER ANOMALIES OF UTERUS 07/30/2016 Ot 575.8 DIS OF GALLBLADDER NEC 07/30/2016 Ot 789.00 ABD OMINAL PAIN, UNSPECIFIED SITE 07/30/2016 Ot 218.9 UTER INE LEIOMYOMA NOS 07/30/2016 Ot 285.9 ANEM IA NOS 07/30/2016 Ot 626.2 EXCE SSIVE MENSTRUATION 07/30/2016 Ot V72.63 PRE -PROCEDURAL LABORATORY EXAMINATION 07/30/2016 YANDEL WONG MD Ot 722.52 LUMB/LUMBOSAC DISC DEGEN 08/20/2016 Ot 575.8 DIS OF GALLBLADDER NEC 08/20/2016 Ot 789.00 ABD OMINAL PAIN, UNSPECIFIED SITE 08/20/2016 Ot 218.9 UTER INE LEIOMYOMA NOS 08/20/2016 Ot 285.9 ANEM IA NOS 08/20/2016 Ot 626.2 EXCE SSIVE MENSTRUATION 08/20/2016 Ot V72.63 PRE -PROCEDURAL LABORATORY EXAMINATION 08/20/2016 WONG MD, YANDEL L Ot 722.52 LUMB/LUMBOSAC DISC DEGEN 08/20/2016 MARVIN DESAI, YANDEL L Ot 722.52 LUMB/LUMBOSAC DISC DEGEN 08/21/2016 MARVIN DESAI, YANDEL L Ot 722.52 LUMB/LUMBOSAC DISC DEGEN 12/20/2016 MARVIN DESAI, YANDEL L Ot 722.52 LUMB/LUMBOSAC DISC DEGEN 07/17/2019 MOISES CARMICHAEL APRN Ot E03 .9 HYPOTHYROIDISM, UNSPECIFIED 07/17/2019 MOISES CARMICHAEL APRN Ot F17.210 NICOTINE DEPENDENCE, CIGARETTES, UNCOMPL 07/17/2019 MOISES CARMICHAEL APRN Ot G43.909 MIGRAINE, UNSP, NOT INTRACTABLE, WITHOUT 07/17/2019 MOISES CARMICHAEL APRN Ot I10 ESSENTIAL (PRIMARY) HYPERTENSION 07/17/2019 MOISES CARMICHAEL APRN Ot J45.909 UNSPECIFIED ASTHMA, UNCOMPLICATED 07/17/2019 MOISES CARMICHAEL APRN Ot M79 .7 FIBROMYALGIA 07/17/2019 MOISES CARMICHAEL APRN Ot R42 DIZZINESS AND GIDDINESS 07/17/2019 MOISES CARMICHAEL APRN Ot R53.81 OTHER MALAISE 07/17/2019 MOISES CARMICHAEL APRN Ot R55 SYNCOPE AND COLLAPSE 07/17/2019 MOISES CARMICHAEL APRN Ot Z90.49 ACQUIRED ABSENCE OF OTHER SPECIFIED PART 07/17/2019 MOISES CARMICHAEL APRN Ot Z90.710 ACQUIRED ABSENCE OF BOTH CERVIX AND UTER 07/23/2019 MOISES CARMICHAEL APRN Ot E03 .9 HYPOTHYROIDISM, UNSPECIFIED 07/23/2019 MOISES CARMICHAEL APRN Ot F17.210 NICOTINE DEPENDENCE, CIGARETTES, UNCOMPL 07/23/2019 MOISES CARMICHAEL APRN Ot G43.909 MIGRAINE, UNSP, NOT INTRACTABLE, WITHOUT 07/23/2019 MOISES CARMICHAEL APRN Ot I10 ESSENTIAL (PRIMARY) HYPERTENSION 07/23/2019 MOISES CARMICHAEL APRN Ot J45.909 UNSPECIFIED ASTHMA, UNCOMPLICATED 07/23/2019 MOISES CARMICHAEL APRN Ot M79 .7 FIBROMYALGIA 07/23/2019 MOISES CARMICHAEL APRN Ot R42 DIZZINESS AND GIDDINESS 07/23/2019 MOISES CARMICHAEL APRN Ot R53.81 OTHER MALAISE 07/23/2019 MOISES CARMICHAEL APRN Ot R55 SYNCOPE AND COLLAPSE 07/23/2019 MOISES CARMICHAEL APRN Ot Z90.49 ACQUIRED ABSENCE OF OTHER SPECIFIED PART 07/23/2019 MOISES CARMICHAEL APRN Ot Z90.710 ACQUIRED ABSENCE OF BOTH CERVIX AND UTER Procedures There is no data. Results Test Result Range CULTURE, URINE - 05/06/18 10:40 CULTURE, URINE, ROUTINE SEE NOTE NRG CRP - 06/05/18 08:21 C-REACTIVE PROTEIN 2.0 mg/L <8.0 RA (RHEUMATOID) FACTOR - 06/05/18 08:21 RHEUMATOID FACTOR <14 IU/mL <14 C-PEPTIDE, SERUM - 06/05/18 08:21 C-PEPTIDE 2.11 ng/mL 0.80-3.85 Complete blood count (CBC) with automate d white blood cell (WBC) differential - 07/17/19 18:45 Blood leukocytes automated count (number/volume) 9.4 10*3/uL 4.3-11.0 Blood erythrocytes automated count (number/volume) 4.49 10*6/uL 4.35-5.85 Venous blood hemoglobin measurement (mass/volume) 13.9 g/dL 11.5-16.0 Blood hematocrit (volume fraction) 41 % 35-52 Automated erythrocyte mean corpuscular volume 91 [ foz_us] 80-99 Automated erythrocyte mean corpuscular h emoglobin (mass per erythrocyte) 31 pg 25-34 Automated erythrocyte mean corpuscular h emoglobin concentration measurement (mass/volume) 34 g/dL 32-36 Automated erythrocyte distribution width ratio 13. 5 % 10.0- 14.5 Automated blood platelet count (count/volume) 177 10*3/uL 130-400 Automated blood platelet mean volume measurement 11.4 [foz_us] 7.4-10.4 Automated blood neutrophils/100 leukocytes 57 % 42-75 Automated blood lymphocytes/100 leukocytes 32 % 12-44 Blood monocytes/100 leukocytes 7 % 0-12 Automated blood eosinophils/100 leukocytes 4 % 0-10 Automated blood basophils/100 leukocytes 0 % 0-10 Blood neutrophils automated count (number/volume) 5.3 10*3 1.8-7.8 Blood lymphocytes automated count (number/volume) 3.0 10*3 1.0-4.0 Blood monocytes automated count (number/volume) 0. 6 10*3 0.0-1.0 Automated eosinophil count 0.4 10*3/uL 0 .0-0.3 Automated blood basophil count (count/volume) 0.0 10*3/uL 0.0-0.1 Serum or plasma choriogonadotropin (preg lanny test) detection - 07/17/19 18:45 Serum or plasma choriogonadotropin ( test) de tection NEGATIVE NEGATIVE Comprehensive metabolic panel - 07/17/19 18:45 Serum or plasma sodium measurement (moles/volume) 138 mmol/L 135-145 Serum or plasma potassium measurement (moles/volume) 3.9 mmol/L 3.6-5.0 Serum or plasma chloride measurement (moles/volume) 104 mmol/L 98-107 Carbon dioxide 26 mmol/L 21-32 Serum or plasma anion gap determination (moles/volume) 8 mmol/L 5-14 Serum or plasma urea nitrogen measurement (mass/volume ) 12 mg/dL 7-18 Serum or plasma creatinine measurement (mass/volume) 0.87 mg/dL 0.60-1.30 Serum or plasma urea nitrogen/creatinine mass ratio 14 NRG Serum or plasma creatinine measurement w ith calculation of estimated glomerular filtration rate > NRG Serum or plasma glucose measurement (mass/volume) 95 mg/dL 70-105 Serum or plasma calcium measurement (mass/volume) 9.2 mg/dL 8.5-10.1 Serum or plasma total bilirubin measurement (mass/volu me) 0.2 mg/dL 0.1-1.0 Serum or plasma alkaline phosphatase amara surement (enzymatic activity/volume) 79 U/L 40-136 Serum or plasma aspartate aminotransfera se measurement (enzymatic activity/volume) 24 U/L 5-34 Serum or plasma alanine aminotransferase measurement (enzymatic activity/volume) 33 U/L 0-55 Serum or plasma protein measurement (mass/volume) 7.4 g/dL 6.4-8.2 Serum or plasma albumin measurement (mass/volume) 4.1 g/dL 3.2-4.5 CALCIUM CORRECTED 9.1 mg/dL 8.5-10.1 Fibrin D-dimer FEU measurement in platel et poor plasma (mass/volume) - 07/17/19 18:45 Fibrin D-dimer FEU measurement in platelet poor plasma (mass/volume) 0.37 ug/mL 0.00-0.49 THYROID STIMULATING HORMONE - 07/17/19 1 8:45 THYROID STIMULATING HORMONE 1.30 u[iU]/mL 0.35-4.94 Serum or plasma thyroxine (T4) free robert urement (mass/volume) - 07/17/19 18:45 Serum or plasma thyroxine (T4) free measurement (mass/ volume) 1.01 ng/dL 0.70-1.48 Serum or plasma lithium measurement (mol es/volume) - 07/17/19 18:45 BNP PT 18.7 pg/mL <100.0 Complete urinalysis with reflex to cultu re - 07/17/19 19:28 Urine color determination YELLOW NRG Urine clarity determination CLEAR NR G Urine pH measurement by test strip 6.0 5-9 Specific gravity of urine by test strip 1.015 1.016-1.022 Urine protein assay by test strip, semi-quantitative NEGATIVE NEGATIVE Urine glucose detection by automated test strip NE GATIVE NEGATIVE Erythrocytes detection in urine sediment by light micr oscopy NEGATIVE NEGATIVE Urine ketones detection by automated test strip NE GATIVE NEGATIVE Urine nitrite detection by test strip NEGATIVE NEGATIVE Urine total bilirubin detection by test strip NEGA TIVE NEGATIVE Urine urobilinogen measurement by automated test strip (mass/volume) 0.2 mg/dL < = 1.0 Urine leukocyte esterase detection by dipstick NEG ATIVE NEGATIVE Automated urine sediment erythrocyte cou nt by microscopy (number/high power field) NONE NRG Automated urine sediment leukocyte count by microscopy (number/high power field) NONE NRG Bacteria detection in urine sediment by light microsco py NEGATIVE NRG Squamous epithelial cells detection in u rine sediment by light microscopy 2-5 NRG Crystals detection in urine sediment by light microsco py NONE NRG Casts detection in urine sediment by light microscopy NONE NRG Mucus detection in urine sediment by light microscopy NEGATIVE NRG Complete urinalysis with reflex to culture NO NRG Encounters ACCT No. Visit Date/Time Discharge Status Pt. Type Provider Facility Loc./Unit Complaint [id number] 07/19/2019 12:20:00 07/19/2019 23:59:5 9 CLS Outpatient MEGAN ALENBING SALINAS [id number] 06/05/2018 09:00:00 Document Registration [id number] 05/06/2018 09:40:00 Document Registration [id number] 07/17/2019 17:27:00 019 20:09:00 DIS Emergency MOISES CARMICHAEL APRN [facility] ER WEAKNESS / DIZZY [id number] 12/24/2012 08:33:00 013 23:59:59 CLS Outpatient YANDEL WONG MD [facility] RAD LUMBAR PAIN [id number] 04/10/2012 05:54:00 Document Registration [id number] 04/07/2012 09:54:00 Document Registration [id number] 11/27/2011 15:04:00 Document Registration [id number] 10/21/2011 21:08:00 Document Registration
--- OUTSIDE RECORDS SUMMARY | 2019-08-12 01:00 | XMS REPORT ---
Author Author Sandra HANEY [facility] Address [address] [place] [address] Care Team Providers Care Drug Room Operator Name Role Phone CAROLYN HANEY Unavailable PROBLEMS Type Condition ICD9-CM Code UWS82-VF Code Onset Dates Condition S tatus SNOMED Code Problem Migraine NOS/not intrcbl G43.009 Activ e 97291795 Problem Hormone replacement therapy Z79.890 Ac tive 704253875 Problem Hypothyroidism, unspecified E03.9 Ac tive 31482753 Problem Dysthymia F34.1 Active 67409930 Problem Obesity (BMI 30.0-34.9) E66.9 Active 891964522839587 Problem Environmental allergies Z91.09 Active 058866811 Problem Fatigue R53.83 Active 52247391 Problem Other headache syndrome G44.89 Active 997929484 Problem Mild intermittent asthma without complication J45. 20 Active 046477239 Problem Family history of rheumatoid arthritis Z82.61 Active 167879918 Problem Arthralgia, unspecified joint M25.50 Active 70178056 Problem Unspecified asthma, uncomplicated J45.909 Active 274564167 Problem Weight gain R63.5 Active 8987339 Problem Gastro-esophageal reflux disease without esophagitis K21.9 Active 866492793 ALLERGIES Substance Reaction Event Type Date Status N.K.D.A. Unknown Non Drug Allergy Jul, Unknown SOCIAL HISTORY No smoking Hx information available PLAN OF CARE Activity Details Follow Up 4 Weeks Reason:wt management VITAL SIGNS Height 62 in 2016-08-12 Weight 186.2 lbs 2016-08-12 Temperature 98.0 degrees Fahrenheit 2016-08-12 Heart Rate 80 bpm 2016-08-12 Respiratory Rate 20 2016-08-12 BMI 34.05 kg/m2 2016-08-12 Blood pressure systolic 122 mmHg 2016-08-12 Blood pressure diastolic 84 mmHg 2016-08-12 MEDICATIONS Medication Instructions Dosage Frequency Start Date End Date Duration S tatus Effexor XR 37.5 TAKE ONE CAPSULE BY MOUTH DAILY WITH FOOD 30 Active Imitrex 100 MG Orally Once a day prn May repeat in 2 h ours 0.5 - 1 tablet as needed one time Mar, 1 day(s) Active Saxenda 18 MG/3ML Subcutaneous once a day 0.6mg daily X 7 days,1.2mg daily X 7 days,1.8mg daily x 7 days,2.4 mg daily x 7 da,3.0mg 24h Jul, Active ProAir HFA 108 (90 Base) MCG/ACT Inhalation every 4 hrs 2 puffs as needed 4h Apr, 30 days Active Levothyroxine Sodium 50 MCG Orally Once a day 1 tablet 24h 27 A 2015 30 day(s) Active Estradiol 1 MG Orally Once a day 2.5 tabs 24h 30 Active Zyrtec Allergy 10 MG Orally Once a day 1 tablet as needed 24h Active Omeprazole 20 MG Orally 2 times a day 1 tablet 12h Active RESULTS No Results PROCEDURES Procedure Date Ordered Related Diagnosis Body Site Office Visit, Est Pt., Level 3 Aug 12, 2016 IMMUNIZATIONS No Known Immunizations
--- OUTSIDE RECORDS SUMMARY | 2019-08-12 01:00 | XMS REPORT ---
Author Author Sandra HANEY Organization [employer] Address Unknown Phone Unavailable Care Team Providers Care Facing Cutting Machine Operator Name Role Phone CAROLYN HANEY CP [...]
== END 2019-07-17 20:09 | disposition home or self-care (01) ==
LOC: EDUNIT# 17:26 → ER 17:27
DX: R55 Syncope and collapse (principal); R53.81 Other malaise; I10 Essential (primary) hypertension; J45.909 Unspecified asthma, uncomplicated; G43.909 Migraine, unspecified, not intractable, without status migrainosus; M79.7 Fibromyalgia; E03.9 Hypothyroidism, unspecified; F17.210 Nicotine dependence, cigarettes, uncomplicated; Z90.710 Acquired absence of both cervix and uterus; Z90.49 Acquired absence of other specified parts of digestive tract
CPT/HCPCS: 36415; 70450; 80053; 81000; 83880; 84439; 84443; 84703; 85025; 85379; 93005; 96360

== ENCOUNTER 2020-12-01 14:29 | Emergency (ER) | payer SELFPAY ==
[~2020-12-01] VITALS: Ht 157 cm; Wt 67.5 kg
[2020-12-01] MEDS ORDERED: KETOROLAC 30 MG/ML VIAL IVP ONE (14:45)
[2020-12-01] MEDS ORDERED: NS IV 1000 ML 1,000 ML IV SCH (14:45)
--- NOTE | 2020-12-01 14:46 | ED EENT ---
History of Present Illness General Stated Complaint: STREP THROAT X 1 WK Source: patient Exam Limitations: no limitations History of Present Illness Date Seen by Provider: Dec 01, 2020 Time Seen by Provider: 14:45 Initial Comments To ER with reports of strep throat for 1 week. She is tested positive at [facility], [facility] twice. 1 week ago at the onset of this she received an intramuscular injection of penicillin. She then went back and was put on Augmentin and nystatin suspension for thrush that she subsequently developed. She received a bag of IV fluids yesterday. She has persistent fevers. Timing/Duration: abrupt Severity: moderate Location: throat Associated Symptoms: No cough; fever Allergies and Home Medications Allergies Coded Allergies: NKANo Known Allergies (Verified Allergy, Unknown, 05/04/06) Home Medications Dicyclomine Hcl 10 Mg Capsule, 1 EACH PO QID PRN, (Reported) Docusate Sodium 100 Mg Capsule, 100 MG PO BID, (Reported) Fluconazole 100 Mg Tablet, 1 EACH PO DAILY, (Reported) Hydrocodone Bit/Acetaminophen 1 Tab Tablet, 1-2 TAB PO Q3H, (Reported) Ibuprofen 800 Mg Tab, 800 MG PO Q6HR PRN, (Reported) Loratadine 10 Mg Tab, 10 MG PO DAILY, (Reported) Metronidazole 500 Mg Tab, 1 EACH PO BID, (Reported) Omeprazole 20 Mg Capsule.dr, 20 MG PO DAILY, (Reported) Phentermine Hcl 15 Mg Capsule, 15 MG PO DAILY, (Reported) [Spriatec] , 1 PO DAILY, (Reported) Patient Home Medication List Home Medication List Reviewed: Yes Review of Systems Review of Systems Constitutional: see HPI Eyes: No Symptoms Reported Ears: See HPI, Pain Nose: no symptoms reported Mouth: no symptoms reported Throat: see HPI, pain, hoarse Respiratory: no symptoms reported Cardiovascular: no symptoms reported Musculoskeletal: no symptoms reported Past Ovwismi-Kvwxuc-Gvpdzb Hx Patient Social History Type Used: Cigarettes 2nd Hand Smoke Exposure: Yes Recent Hopitalizations: Yes Immunizations Up To Date Date of Pneumonia Vaccine: May 18, 2011 Past Medical History Surgeries: Yes (surgery on her thumb, 2 back sx ) Appendectomy, Section, Gallbladder, Hysterectomy, Orthopedic Respiratory: Yes Asthma Cardiac: Yes Hypertension Neurological: Yes Headaches /Migraines Reproductive Disorders: Yes (DUB, FIBROID) Female 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 oz. kg; 27.00 BMI Method:Stated General Appearance: WD/WN, no apparent distress Eyes: bilateral eye normal inspection, bilateral eye PERRL, bilateral eye EOMI Ears: bilateral ear auricle normal, bilateral ear canal normal, bilateral ear TM normal Mouth/Throat: tonsillar exudate, tonsillar swelling Neck: non-tender, full range of motion, lymphadenopathy (R), lymphadenopathy (L) Cardiovascular: no murmur, tachycardia (Rate of 140) Gastrointestinal: normal bowel sounds, non tender, soft Neurologic/Psychiatric: alert, normal mood/affect, oriented x 3 Skin: normal color, warm/dry Progress/Results/Core Measures Results/Orders Lab Results Laboratory Tests Test 12/01/20 14:47 12/01/20 15:13 Range/Units White Blood Count 9.6 4.3-11.0 10^3/uL Red Blood Count 4.43 3.80-5.11 10^6/uL Hemoglobin 14.0 11.5-16.0 g/dL Hematocrit 39 35-52 % Mean Corpuscular Volume 89 80-99 fL Mean Corpuscular Hemoglobin 32 25-34 pg Mean Corpuscular Hemoglobin Concent 36 32-36 g/dL Red Cell Distribution Width 13.6 10.0-14.5 % Platelet Count 388 130-400 10^3/uL Mean Platelet Volume 12.1 9.0-12.2 fL Immature Granulocyte % (Auto) 1 % Neutrophils (%) (Auto) 73 42-75 % Lymphocytes (%) (Auto) 18 12-44 % Monocytes (%) (Auto) 7 0-12 % Eosinophils (%) (Auto) 1 0-10 % Basophils (%) (Auto) 0 0-10 % Neutrophils # (Auto) 7.0 1.8-7.8 X 10^3 Lymphocytes # (Auto) 1.7 1.0-4.0 X 10^3 Monocytes # (Auto) 0.7 0.0-1.0 X 10^3 Eosinophils # (Auto) 0.1 0.0-0.3 10^3/uL Basophils # (Auto) 0.0 0.0-0.1 10^3/uL Immature Granulocyte # (Auto) 0.1 0.0-0.1 10^3/uL Monoscreen NEGATIVE NEGATIVE Sodium Level 138 135-145 MMOL/L Potassium Level 2.9 L 3.6-5.0 MMOL/L Chloride Level 101 98-107 MMOL/L Carbon Dioxide Level 24 21-32 MMOL/L Anion Gap 13 5-14 MMOL/L Blood Urea Nitrogen 9 7-18 MG/DL Creatinine 0.88 0.60-1.30 MG/DL Estimat Glomerular Filtration Rate > 60 BUN/Creatinine Ratio 10 Glucose Level 97 70-105 MG/DL Calcium Level 8.1 L 8.5-10.1 MG/DL Corrected Calcium 8.7 8.5-10.1 MG/DL Total Bilirubin 0.3 0.1-1.0 MG/DL Aspartate Amino Transf (AST/SGOT) 25 5-34 U/L Alanine Aminotransferase (ALT/SGPT) 28 0-55 U/L Alkaline Phosphatase 122 40-136 U/L C-Reactive Protein High Sensitivity 6.07 H 0.00-0.50 MG/DL Total Protein 7.0 6.4-8.2 GM/DL Albumin 3.3 3.2-4.5 GM/DL My Orders Orders - MOISES CARMICHAEL APRN Cbc With Automated Diff (12/01/20 14:43) Comprehensive Metabolic Panel (12/01/20 14:43) Monotest (12/01/20 14:43) Hs C Reactive Protein (12/01/20 14:43) Ns Iv 1000 Ml (Sodium Chloride 0.9%) (12/01/20 14:45) Ketorolac Injection (Toradol Injection) (12/01/20 14:45) Dexamethasone Injection (Decadron Inje (12/01/20 14:45) Potassium Cl 10meq/50ml Ivpb (Kcl 10 Meq (12/01/20 16:00) Ns (Ivpb) (Sodium Chloride 0.9%) (12/01/20 16:00) Medications Given in ED Current Medications Medications Dose Ordered Sig/Heather Route Start Time Stop Time Status Last Admin Dose Admin Dexamethasone Sodium Phosphate 10 mg ONCE ONCE IV 12/01/20 14:45 12/01/20 14:46 DC 12/01/20 15:01 10 MG Ketorolac Tromethamine 15 mg ONCE ONCE IVP 12/01/20 14:45 12/01/20 14:46 DC 12/01/20 15:00 15 MG Vital Signs/I&O 12/01/20 14:45 Temp 37.1 Pulse 140 Resp 17 B/P (MAP) 142/100 (114) Pulse Ox 99 O2 Delivery Room Air Departure Impression Primary Impression: Pharyngitis Qualified Codes: J02.9 - Acute pharyngitis, unspecified Additional Impression: Hypokalemia Disposition: HOME, SELF-CARE Condition: Stable Departure-Patient Inst. Decision time for Depature: 15:59 Referrals: NO,LOCAL PHYSICIAN (PCP/Family) Primary Care Physician Patient Instructions: Hypokalemia (DC), Sore Throat in Adults Add. Discharge Instructions: 1. Steroids and potassium supplement as directed. Return to ER for any concerns. Follow-up with your doctor next week. Scripts Potassium Chloride (Klor-Con) 20 Meq Packet 20 MEQ PO BID, #4 PACKET Prov: MOISES CARMICHAEL TENNIS DIRECTOR 12/01/20 Prednisone (Prednisone) 20 Mg Tab 40 MG PO DAILY, #6 TAB 0 Refills Prov: MOISES CARMICHAEL TENNIS DIRECTOR 12/01/20 MOISES CARMICHAEL APRN Dec 01, 2020 14:46
[2020-12-01 15:04] LABS: BASOPHILS % (AUTO) 0 % (0-10); EOSINOPHILS # (AUTO) 0.1 10^3/uL (0.0-0.3); EOSINOPHILS % (AUTO) 1 % (0-10); HEMATOCRIT 39 % (35-52); LYMPHOCYTES # (AUTO) 1.7 X 10^3 (1.0-4.0); LYMPHOCYTES % (AUTO) 18 % (12-44); MEAN CORPUSCULAR HEMOGLOBIN 32 pg (25-34); MEAN CORPUSCULAR HGB CONC 36 g/dL (32-36); MEAN CORPUSCULAR VOLUME 89 fL (80-99); MEAN PLATELET VOLUME 12.1 fL (9.0-12.2); MONOCYTES # (AUTO) 0.7 X 10^3 (0.0-1.0); MONOCYTES % (AUTO) 7 % (0-12); NEUTROPHILS % (AUTO) 73 % (42-75); PLATELET COUNT 388 10^3/uL (130-400); WHITE BLOOD COUNT 9.6 10^3/uL (4.3-11.0)
[2020-12-01 15:38] LABS: ALBUMIN 3.3 GM/DL (3.2-4.5); CHLORIDE 101 MMOL/L (98-107); POTASSIUM 2.9 MMOL/L (3.6-5.0); SODIUM 138 MMOL/L (135-145)
[2020-12-01 15:39] LABS: CALCIUM 8.1 MG/DL (8.5-10.1)
[2020-12-01 15:41] LABS: GLUCOSE 97 MG/DL (70-105)
[2020-12-01 15:42] LABS: BILIRUBIN,TOTAL 0.3 MG/DL (0.1-1.0); CARBON DIOXIDE 24 MMOL/L (21-32)
[2020-12-01 15:44] LABS: ALKALINE PHOSPHATASE 122 U/L (40-136); CREATININE SERUM 0.88 MG/DL (0.60-1.30); GFR ESTIMATED > 60
[2020-12-01 15:45] LABS: BUN/CREATININE RATIO 10
[2020-12-01 15:47] LABS: ALANINE AMINOTRANSFERASE 28 U/L (0-55)
[2020-12-01] MEDS ORDERED: NS (IVPB) 250 ML IV ONE (16:00)
[2020-12-01] MEDS ORDERED: POTASSIUM CL 10MEQ/50ML IVPB 50 ML IV ONE (16:00)
[2020-12-01] MEDS ORDERED: POTA20PA34 PO (16:04)
[2020-12-01] MEDS ORDERED: PRD20T PO (16:04)
[2020-12-01 17:19] VITALS: BP 121/87
== END 2020-12-01 17:22 | disposition home or self-care (01) ==
LOC: EDUNIT# 14:29 → ER 14:30
DX: J02.9 Acute pharyngitis, unspecified (principal); E87.6 Hypokalemia; J45.909 Unspecified asthma, uncomplicated; I10 Essential (primary) hypertension; Z77.22 Contact with and (suspected) exposure to environmental tobacco smoke (acute) (chronic)
CPT/HCPCS: 36415; 80053; 85025; 86141; 86308